=== PATIENT | male | born 1960 | race Caucasian/White ===

== ENCOUNTER 2025-02-20 13:26 | Inpatient (IN) | payer MEDICARE, BC, SELFPAY ==
--- NOTE | ~2025-02-20 | CT_ITS ---
CLINICAL HISTORY: fall this morning CT cervical spine without contrast Comparison: None Findings: Normal limited view of the intracranial contents. Soft tissues of the neck are normal. Lung apices are normal. Normal vertebral body alignment. No fractures or dislocations. Diffuse cervical degenerative changes are present, more significant C5-7.. Impression: 1. No cervical vertebral fracture or traumatic malalignment. This document has been electronically signed by: Javier Mckeon MD on 02/20/2025 15:37:38
--- NOTE | ~2025-02-20 | CT_ITS ---
CLINICAL HISTORY: sob syncope + DVT Exam: Contrast-enhanced chest CT pulmonary angiogram with multiplanar reformats. Comparison: There is a saddle embolus involving the left main pulmonary artery (6; 168), with left upper and lower lobe lobar pulmonary emboli as well as left lower lobe segmental pulmonary emboli. There are subsegmental pulmonary emboli within right lower lobe (6; 246). No other definable pulmonary emboli. The RV/LV ratio appears greater than 1 (measured on 6; 266), without definitive CT evidence of right ventricular strain. No aortic dissection. No mediastinal or hilar masses or adenopathy. No pleural or pericardial effusions. Images below the diaphragms reveal no acute abnormalities. Lungs are free of focal consolidation. No pulmonary nodules or parenchymal lesions. Airways are patent. No pneumothorax. Osseous structures reveal no destructive osseous lesions. Impression: 1. Left worse than right pulmonary emboli as described above. No definitive CT evidence of right ventricular strain. This document has been electronically signed by: Javier Mckeon MD on 02/20/2025 18:58:28
--- NOTE | ~2025-02-20 | US_ITS ---
CLINICAL HISTORY: RLE swelling pain Right lower extremity venous duplex ultrasound. Comparison: None. Technique: Real time sonographic imaging, including color-flow imaging and spectral analysis, was performed by the densitometer reader. Multiple sales representative aircraft static images were saved for review. Findings: There is noncompressibility and absent venous flow signal extending from the common femoral to the popliteal level, compatible with fairly extensive deep venous thrombosis. There may be some involvement of the greater saphenous vein origin as well. Impression: 1. Right lower extremity deep venous thrombosis as described above. This document has been electronically signed by: Javier Mckeon MD on 02/20/2025 14:42:48
--- NOTE | ~2025-02-20 | CT_ITS ---
CLINICAL HISTORY: fall this morning CT head without contrast Comparison: None Findings: No intracranial mass, midline shift, hydrocephalus, or acute hemorrhage. No CT evidence of acute ischemia. Visualized paranasal sinuses and mastoid air cells normal. Orbits unremarkable. No skull fracture Impression: 1. No acute intracranial abnormalities. This document has been electronically signed by: Javier Mckeon MD on 02/20/2025 15:35:32
[2025-02-20 13:41] VITALS: BP 171/71; PULSE 93; RESP 18; TEMP 36.7; O2SAT 98; BMI 29.8
--- NOTE | 2025-02-20 13:44 | ED_ITS ---
HPI - General Adult General Chief complaint: Extremity Problem Stated complaint: swollen leg - fall Time Seen by Provider: 02/20/25 16:39 History of Present Illness HPI narrative: patient is a 64-year-old male presents today with having leg swelling for the last 2 days. There is no injury. There is no travel history. There is no history of cancer. Patient is complaining of feeling dizzy this morning and fell this morning. There was no loss of consciousness. There is no head strike. A CT scan was ordered prior to me evaluating patient. Was done in triage. Patient had a DVT study done at triage. Grossly positive for a DVT that was fairly extensive. Patient from home. No chest pain or shortness of breath. Related Data Allergies Allergy/AdvReac Type Severity Reaction Status Date / Time No Known Allergies Allergy Verified 02/20/25 13:46 Review of Systems 2 Review of Systems: Positive near syncopal episode Yes all other systems are reviewed and are negative PMFSH Past Medical History Attestation statement: The following information was validated with the patient. Social History Social History Advance Directives: No Advance Directives Information Provided: No Physical Exam ED Exam Exam: Appearance: Alert. Oriented X3. No acute distress. Eyes: Pupils equal, round and reactive to light. ENT: Pharynx normal. Neck: Normal inspection. Neck supple. No lymph nodes noted. No crepitus CVS: Normal heart rate and rhythm. Pulses normal. Normal S1 and S2 Respiratory: No respiratory distress. Breath sounds normal. No Wheezing. No rales Abdomen: Soft and nontender. No rigidity. No distention. good BS x4 Skin: Skin warm and dry. Normal skin color. Normal skin turgor. Extremities: extensive swelling to the right leg. Good distal pulses sensation intact calf size larger on the right compared to the left. There is a slight reddish color noted on the right lower extremity. Neuro: Oriented X 3. No motor deficit. No sensory deficit. Moving all extermities. No slurred speech Vital Signs: Vital Signs - 24 hr 02/20/25 13:41 02/20/25 17:18 02/20/25 17:39 Temperature 98.1 F Pulse Rate 93 75 86 Respiratory Rate 18 16 16 Blood Pressure 171/71 H 151/93 H 167/85 H Pulse Oximetry 98 99 Oxygen Delivery Method Room Air Room Air BMI result Body Mass Index 29.8 Course Course Course Narrative: This is a Rapid Medical Examination (RME) performed by Jagdish Baker PA-C in triage. Full HPI, ROS, assessment and treatment plan per primary provider in the Main ED. Hx: 64 yo M here for eval of RLE pain/swelling/redness x2 days. no initial injury/trauma. reports fall this morning after feeling dizzy in the hot shower, states I went down . denies head strike, unclear LOC. no thinners. Plan: labs, imaging Medications Administered Discontinued Medications Generic Name Dose Route Start Last Admin Trade Name Freq PRN Reason Stop Dose Admin Enoxaparin Sodium 100 mg 02/20/25 17:09 02/20/25 17:33 Enoxaparin Sodium 100 Mg/Ml Syringe SUBCUT 02/20/25 17:10 100 mg ONCE ONE Administration Iohexol 100 ml 02/20/25 18:31 02/20/25 18:32 Iohexol 350 Mg/Ml 100 Ml Infus..Btl IV 02/20/25 18:32 65 ml ONCE ONE Administration Medical Decision Making Medical Decision Making [facility] Narrative: patient 64 years old presents today with having right leg swelling. On my exam the leg appears to be more red in color. It was enlarged. Ultrasound was positive for an extensive DVT. The finding was discussed with vascular agreed patient should be admitted for anticoagulation. They will consult. In addition patient had an episode where he nearly passed out. Because of this we did a CTA of the chest. The CTA was positive for bilateral PEs. Patient is already on Lovenox. Case will be consulted with the hospitalist team. Patient will require admission. Further workup advised. No history of cancer. Differential Diagnosis Differential Diagnoses: The differential diagnosis associated with the presentation includes DVT versus PE versus syncope versus vasovagal syncope Admission/Observation Consideration of admission/observation: Escalation of care including admission/observation considered Consult Healthcare Provider Management of the patient was discussed with: Hospitalist and Facilities Clerk ( vascular) Lab Data [facility] Lab Attestation statement: I reviewed the patient's lab results. 02/20/25 18:11 02/20/25 18:11 Labs: Lab Results 02/20/25 02/20/25 02/20/25 Range/Units 14:31 18:11 18:12 WBC 8.5 9.1 (4.8-10.8) X10*3/uL RBC 4.46 L 4.38 L (4.60-5.80) X10*6/uL Hgb 13.4 L 13.1 L (14.0-18.0) g/dl Hct 38.9 L 37.9 L (42.0-52.0) % MCV 87.2 86.5 (80.0-98.0) fL MCH 30.0 29.9 (27.0-33.0) pg MCHC 34.4 34.6 (31.0-36.0) g/dl RDW 13.2 13.1 (11.0-16.0) % Plt Count 170 170 (160-400) X10*3/uL MPV 9.6 9.2 L (9.4-12.4) fL Immature Gran % (Auto) 0.4 (0.0-0.4) % Neut % (Auto) 74.8 H (45-73) % Lymph % (Auto) 12.9 L (20-40) % [place] % (Auto) 9.9 (2-11) % Eos % (Auto) 1.4 (0-4) % Baso % (Auto) 0.6 (0-2) % Lymph # (Auto) 1.1 L (1.2-4.9) X10*3/uL [place] # (Auto) 0.8 (0.1-1.2) X10*3/uL Eos # (Auto) 0.1 (0.0-0.4) X10*3/uL Baso # (Auto) 0.1 (0.0-0.2) X10*3/uL Abs Immat Gran (auto) 0.03 (0.00-0.03) X10*3/uL Absolute Neuts (auto) 6.3 (2.0-8.3) x10*3/uL Absolute Nucleated RBC 0.000 0.000 (0.0-0.012) X10*3/uL Nucleated RBC % (auto) 0.0 0.0 (0.0-0.2) /100WBC PT 14.4 H (11.2-13.5) SEC INR 1.2 H (0.9-1.1) Sodium 138 (135-145) mmol/L Potassium 4.6 (3.3-5.1) mmol/L Chloride 105 (96-108) mmol/L Carbon Dioxide 24 (22-29) mmol/L Anion Gap 14 (12-20) BUN 34 H 32 H (9-16) mg/dL Creatinine 1.74 H 1.63 H (0.5-1.4) mg/dL Estim Creat Clear Calc 48.1 51.4 Estimated GFR 39 43 Random Glucose 105 (60-115) mg/dL Calcium 9.5 (8.4-10.2) mg/dL Magnesium 2.3 (1.6-2.6) mg/dL Total Bilirubin 0.6 (0.0-1.0) mg/dL AST 25 (5-37) U/L ALT 24 (0-40) U/L Alkaline Phosphatase 58 (39-117) U/L Troponin I High Sens 8.0 9.8 (<3.5-35.0) ng/L Total Protein 7.6 (6.5-8.0) g/dL Albumin 4.4 (3.5-5.0) g/dL Independent Interpretation I performed an independent interpretation of an: CT Scan ( positive PE) Radiology Impression Discussion of test interpretation with radiology: I discussed test interpretation with the radiologist Chronic Conditions Patient?s care impacted by: Hypertension Social Determinants Patient?s care significantly limited by Social Determinants of Health including: Problems related to primary support group Critical Care Time Critical Care Time Critical Care Time: Yes Total Critical Care Time: 40 Attestation: I have personally provided 40 minutes of critical care time exclusive of time spent on separately billable procedures. Time includes review of lab data, radiology results, discussion with consultants, and monitoring for potential decompensation. Interventions were performed as documented above Discharge Plan Discharge Clinical Impression: Deep vein thrombosis of lower extremity, Pulmonary emboli Patient Disposition: Admitted As Inpatient Print Language: [place]
--- NOTE | 2025-02-20 13:47 | ECG_ITS ---
Test Reason : dizziness Blood Pressure : */* mmHG Vent. Rate : 75 BPM Atrial Rate : 75 BPM P-R Int : 142 ms QRS Dur : 82 ms QT Int : 356 ms P-R-T Axes : 18 39 23 degrees QTcB Int : 397 ms Normal sinus rhythm Normal ECG No previous ECGs available Referred By: Alicia Baker Electronically Signed By: Rajat Aguero
--- NOTE | 2025-02-20 14:03 | MHC.EDTECH ---
Addendum entered by Samantha Alcala RN 02/20/25 14:25: EKG obtained at 1422 Original Note: Patient called for EKG 1401 no answer. Will attempt again.
[2025-02-20 14:35] LABS: MANUAL DIFF FLAG NO
[2025-02-20 14:40] LABS: Hematocrit 38.9 % (42.0-52.0); Hemoglobin 13.4 g/dl (14.0-18.0); Imm Gran Abs Auto 0.03 X10*3/uL (0.00-0.03); Imm Gran Pct Auto 0.4 % (0.0-0.4); Lymphocytes Absolute Auto 1.1 X10*3/uL (1.2-4.9); Mean Corpuscular HGB Conc 34.4 g/dl (31.0-36.0); Mean Corpuscular Hemoglobin 30.0 pg (27.0-33.0); Mean Corpuscular Volume 87.2 fL (80.0-98.0); NRBC Abs Auto 0.000 X10*3/uL (0.0-0.012); NRBC Pct Auto 0.0 /100WBC (0.0-0.2); Platelet Count 170 X10*3/uL (160-400); Red Blood Count 4.46 X10*6/uL (4.60-5.80); White Blood Count 8.5 X10*3/uL (4.8-10.8)
[2025-02-20 14:53] LABS: Alanine Aminotransferase 24 U/L (0-40); Albumin Level 4.4 g/dL (3.5-5.0); Alkaline Phosphatase 58 U/L (39-117); Anion Gap 14 (12-20); Aspartate Amino Transferase 25 U/L (5-37); Blood Urea Nitrogen 34 mg/dL (9-16); Calcium 9.5 mg/dL (8.4-10.2); Carbon Dioxide 24 mmol/L (22-29); Chloride 105 mmol/L (96-108); Creatinine Clr Calc Pharmacy 48.1; Estimated Glomerular Filt Rate 39; Magnesium 2.3 mg/dL (1.6-2.6); Potassium 4.6 mmol/L (3.3-5.1); Sodium 138 mmol/L (135-145); Total Protein 7.6 g/dL (6.5-8.0)
[2025-02-20 15:00] LABS: Troponin-I High Sensitivity 8.0 ng/L (<3.5-35.0)
[2025-02-20 17:18] VITALS: BP 151/93; PULSE 75; RESP 16; O2SAT 99
--- OUTSIDE RECORDS SUMMARY | 2025-02-20 17:30 | XMS_ITS | Clinical Summary ---
Author Organization [facility] Address [facility] [place] [address] Care Team Providers Care Pain Management Physician Name Role Phone Renita Segura APRN Primary Care Provider Allergies No known active allergies Medications triamcinolone (Kenalog) 0.1 % Ointment Apply topically to the affected area twice daily for 21 days. Take 1 week off, repeat as needed, 80 g 3 1 Active Vitamin D 25 mcg (1,000 unit) CapsuleIndications :Stage 3b chronic kidney disease,Vitamin D deficiency TAKE 1 CAPSULE BY MOUTH EVERY DAY 90 capsule 3 4 Active lisinopriL (Zestril) 20 mg tabletIndications: Stage 3b chronic kidney disease TAKE 1 TABLET BY MOUTH EVERY DAY 90 tablet 3 5 Active rosuvastatin (Crestor) 20 mg tabletIndications: Hyperlipidemia, unspecified hyperlipidemia type TAKE 1 TABLET BY MOUTH EVERY DAY 90 tablet 3 5 Active Active Problems Problem Noted Date Diagnosed Date Stage 3b chronic kidney disease 04/20/2024 Stage 3a chronic kidney disease 04/03/2023 Vitamin D deficiency 04/03/2023 Prediabetes 03/21/2020 Erectile dysfunction 04/12/2016 Essential hypertension 04/12/2016 Hyperlipidemia 04/12/2016 History of colon polyps 04/18/2011 Overview (06/27/2022): Colonoscopy (April 2011): 1 diminutive adenoma. Repeat colonoscopy in 5 years. Colonoscopy (May 2016): 2 hyperplastic polyps and early diverticulosis. Repeat colonoscopy in 5 years. Colonoscopy (June 2022): Normal colonoscopy except hemorrhoids. Repeat colonoscopy in 10 years. Resolved Problems Problem Noted Date Diagnosed Date Resolved Date Diverticulosis of colon 05/13/201606/08 Overview (06/25/2022): Early sigmoid diverticulosis identified by colonoscopy. Encounters Date Type Department Care Team Description 12/07/2024 4:20 PM EDT TH Visit (TeleHealth) Primary Care at [address] [phone] Renita Segura APRN Prediabetes; Vitamin D deficiency; Hyperlipidemia, unspecified hyperlipidemia type; Stage 3a chronic kidney disease 12/02/2024 Telephone Primary Care at [address] [phone] Renita Segura APRN 11/27/2024 8:40 AM EDT Laboratory Appointment Lab at [address] [phone] Elevated fasting blood sugar; Stage 3a chronic kidney disease; Essential hypertension; Prediabetes; Hematuria, unspecified type; Hyperlipidemia, unspecified hyperlipidemia type 11/27/2024 Results Follow-Up Primary Care at [address] [phone] Renita Segura, [employer] PROFESSIONAL Comprehensive metabolic panel Fasting required, Hemoglobin A1c, CBC (with Diff), Additional followed-up results: 4 11/27/2024 Travel 11/23/2024 Telephone Primary Care at [address] [phone] Renita Segura APRN from Last 3 Months Immunizations Immunization Administration Dates Next Due Covid-19 (Moderna Spikevax) 12yrs+ ([id number]) 01/20/2023 Covid-19 Bivalent (Pfizer Co mirnaty) 12yrs+ ([id number]) 01/12/2022 Covid-19 Monovalent (Pfizer Comirnaty purple cap) 12yrs+ () 02/17/2021,06/21/2020,05/31/2020 DT Pediatric 04/14/2003,03/10/1990 Influenza (Fluzone HD) Triva lent High Dose 11/26/2023 Influenza Quadrivalent, Pres ervative Free 01/20/2023,01/12/2022,12/16/2020,2019,01/11/2019 Influenza Unspecified Formulation 2017,12/08/2015,12/03/2014,2013,12/05/2012,12/01/2010,02/20/2010,1 Td Adult (Decavac, Tenivac) 04/13/2019 Tdap (Adacel, Boostrix) 07/25/2008 Zoster Recombinant (ShingRix) 02/13/2024 Social History Tobacco Use Types Packs/Day Years Used Date Smoking Tobacco: Never Smokeless Tobacco: Never Tobacco Cessation:Counseling Given: Not Answered Alcohol Use Standard Drinks/Week Comments Not Currently 0 (1 standard drink = 0.6 oz pur e alcohol) DH IPV Inpatient Questions Answer Date Recorded Does Anyone Try to Keep You From Having Contact with Others or Doing Things Outside Your Home? no 06/26/2022 Feels Threatened by Someone no 06/08 Feels Unsafe at Home or Work/School no 06/26/2022 Physical Signs of Abuse Present no 06/26/2022 Sex and Gender Information Value Date Recorded Sex Assigned at Not on file Legal Sex Male 6:19 AM EST Gender Identity Not on file Sexual Orientation Not on file Last Filed Vital Signs Vital Sign Reading Time Taken Comments Blood Pressure 132/74 04/20/2024 8:03 AM EST Pulse 67 04/20/2024 8:03 AM EST Temperature 36.5 C (97.7 F) 12/05/2022 8:15 AM EDT Respiratory Rate 12 02/18/2023 1:52 PM EST Oxygen Saturation 98% 04/20/2024 8:03 AM EST Inhaled Oxygen Concentration - - Weight 99.3 kg (219 lb) 04/20/2024 8:03 AM EST Height 177.2 cm (5' 9.75 ) 06/24/2023 1:58 PM ED T Body Mass Index 31.65 06/24/2023 1:58 PM EDT Plan of Treatment Health Maintenance Due Date Last Done Comments CT Colonography 1960 FIT DNA 1960 FIT 1960 Sigmoidoscopy 1960 Zoster vaccine (2 of 2) 04/09/2024 02/13/2024 Covid-19 Vaccine (7 - season) 2024 11/26/2023, 01/20/2023, 01/12/2022, Additional history exists Influenza (Flu) vaccine (1 of 1 - Influenza standard series) 11/08/2024 11/26/2023, 01/20/2023, 01/12/2022, Additional history exists Pneumoccocal Vaccine: 50+ (1 of 1 - PCV) 04/20/2025 Postponed from 2008 (Patient Declined) Pre-DM monitoring (HgbA1C or FBG) 11/27/2025 11/27/2024, 11/27/2024, 04/20/2024, Additional history exists Tetanus/Diphtheria/Pertussi s Vaccines (5 - Td or Tdap) 04/13/2029 04/13/2019, 07/25/2008, 04/14/2003, Additional history exists Colonoscopy 06/26/2032 06/26/2022, 06/08, 05/13/2016 Colorectal Cancer Screening 06/26/2032 Sigmoidoscopy (10 year) with FIT yearly 06/26/2032 06/26/2022, 06/26/2022 Hepatitis C Screening Completed 03/07/2021 Diabetes Screening (HgbA1C or Glucose) Discontinued 11/27/2024, 11/27/2024, 04/20/2024, Additional history exists Procedures Procedure Name Priority Date/Time Associated Diagnosis Comments URINALYSIS MICROSCOPIC WITH REFLEX TO CULTURE Routine 11/27/2024 8:37 AM EDT Hematuria, unspecified type URINALYSIS WITH REFLEX CULTURE Routine 11/27/2024 8:37 AM EDT Hematuria, unspecified type U ALBUMIN/CRE RATIO Routine 11/27/2024 8 :37 AM EDT Prediabetes LIPID PANEL (REFLEX DIRECT LDL) Routine 11/27/2024 8:29 AM EDT Hyperlipidemia, unspecified hyperlipidemia type CBC (WITH DIFF) Routine 11/27/2024 8:29 AM EDT Hematuria, unspecified type HEMOGLOBIN A1C Routine 11/27/2024 8:29 AM EDT Elevated fasting blood sugar Prediabetes COMPREHENSIVE METABOLIC PANEL Routine 11/27/2024 8:29 AM EDT Elevated fasting blood sugar Stage 3a chronic kidney disease Essential hypertension Prediabetes COLONOSCOPY Routine 06/26/2022 8:50 AM EDT HC HEPATITIS C ANTIBODY Routine 03/07/2021 7:41 AM EST Healthcare maintenance from Last 3 Months or Most Recently Relevant to Health Maintenance Results * Urinalysis Microscopic Exam (11/27/2024 8:37 AM EDT) Bacteria, Urine None None /HPF 10:06 AM EDT [facility] RBC, Urine 2 0 - 3 /HPF 11/27/2024 10:06 AM EDT [facility] WBC, Urine 1 0 - 3 /HPF 11/27/2024 10:06 AM EDT [facility] Squamous Epithelial Cells, Urine 0 0 - 5 /HPF 11/27/2024 10:06 AM EDT [facility] Hyaline Casts, Urine 0 0 - 2 /LPF 11/27/2024 10:06 AM EDT [facility] CULTURE ADDED? 11/27/2024 10:06 AM EDT [facility] Urine URINE SPECIMEN OBTAINED BY CLEAN CATCH PROCEDURE / Unknown Non Blood Collection / Unknown 11/27/2024 8:37 AM EDT 11/27/2024 9:03 AM EDT us Renita A Profetto [employer]ESSIONAL URINE ORDERABLES Final Resu lt [facility] [address] [place] [address] * (ABNORMAL) U Albumin/Cre Ratio (11/27/2024 8:37 AM EDT) Albumin, Urine 32.2 mg/L 11/27/2024 10:11 AM EDT [facility] Creatinine, Urine 49 mg/dL 025 10:11 AM EDT [facility] Albumin / Creatinine Ratio, Urine 66(H) 0 - 29 mcg/mg Cr 11/27/2024 10:11 AM EDT [facility] Comment: Reference Ranges: <30 mcg/mg: Normal 30-300 mcg/mg: Moderately increased albuminuria.* >300 mcg/mg: Severely increased albuminuria. * ACEI or ARB recommended if diabetic; suggested if BP>130/80 without diabetes ACEI or ARB strongly recommended if diabetic; recommended if BP>130/80 without diabetes Two of three specimens collected within a 3 to 6 month period should be abnormal before considering a patient to have albuminuria. Transient causes: exercise, fever, infection, CHF, marked hyperglycemia or hypertension. Persistent albuminuria indicates CKD and is an independent risk factor for ASCVD. ADA Standards of Medical Care in Diabetes-2016; KDIGO: Kidney International Supplements (2012) [phone] Urine URINE SPECIMEN OBTAINED BY CLEAN CATCH PROCEDURE / Unknown Non Blood Collection / Unknown 11/27/2024 8:37 AM EDT 11/27/2024 9:03 AM EDT us Renita Segura [employer] PROFESSIONAL URINE ORDERABLES Final Resu lt [facility] [address] [place] [address] * (ABNORMAL) Urinalysis with reflex Culture (11/27/2024 8:37 AM EDT) Glucose, Urine Dipstick Negative Negative 11/27/2024 10:06 AM EDT [facility] Protein, Urine Dipstick Negative Negative 11/27/2024 10:06 AM EDT [facility] Bilirubin, Urine Dipstick Negative Negative 11/27/2024 10:06 AM EDT [facility] Comment:Clinical correlation required for positive Urine Bilirubin results as false positive may occur with some drugs and drug related products. If a false positive is suspected a serum total bilirubin should be considered if clinically indicated. Urobilinogen, Urine Dipstick Normal Normal, 0.2 mg/dL, 1.0 mg/dL 11/27/2024 10:06 AM [facility] pH, Urine (dipstick) 6.0 5.0 - 8.0 11/27/2024 10:06 AM [facility] Blood, Urine Dipstick Small(A) Negative 11/27/2024 10:06 AM [facility] Ketone, Urine Dipstick Negative Negative 11/27/2024 10:06 AM [facility] Nitrite, Urine Dipstick Negative Negative 11/27/2024 10:06 AM [facility] Leukocytes, Urine Dipstick Negative Negative 11/27/2024 10:06 AM [facility] Specific [place] Urine Automated 1.010 1.005 - 1.030 11/27/2024 10:06 AM [facility] Appearance, Urine Dipstick Clear Clear 11/27/2024 10:06 AM [facility] Color, Urine Dipstick Yellow Yellow, Dark Yellow 11/27/2024 10:06 AM [facility] CULTURE ADDED? 11/27/2024 10:06 AM [facility] Urine URINE SPECIMEN OBTAINED BY CLEAN CATCH PROCEDURE / Unknown Non Blood Collection / Unknown 11/27/2024 8:37 AM EDT 11/27/2024 9:03 AM EDT us Renita Segura [employer] SAL[employer] PROFESSIONAL URINE ORDERABLES Final Resu lt [facility] [address] [place] [address] * (ABNORMAL) CBC (with Diff) (11/27/2024 8:29 AM EDT) White Blood Cell 7.22 4.00 - 9.50 x10(3)/mc L 11/27/2024 9:13 AM [facility] Red Blood Cell 4.90 4.58 - 5.54 x10(6)/mc L 11/27/2024 9:13 AM [facility] Hemoglobin 14.2 13.7 - 16.5 g/dL 11/27/2024 9:13 AM [facility] Hematocrit 42.6 40.5 - 48.5 % 11/27/2024 9:13 AM [facility] Mean Cell Volume 86.9 82.9 - 93.1 fL 11/27/2024 9:13 AM [facility] Mean Cell Hemoglobin 29.0 27.5 - 32.1 pg 11/27/2024 9:13 AM [facility] Mean Cell Hemoglobin Concentration 33.3 32.0 - 35.7 g/dL 11/27/2024 9:13 AM [facility] Platelet 198 145 - 357 x10(3)/mc L 11/27/2024 9:13 AM [facility] Mean Platelet Volume 9.7 7.6 - 12.9 fL 11/27/2024 9:13 AM [facility] RDW Standard Deviation 42.1 36.0 - 45.0 fL 11/27/2024 9:13 AM [facility] RDW coefficient of variation 13.1 11.4 - 13.8 % 11/27/2024 9:13 AM [facility] NRBC% auto 0.0 % 11/27/2024 9:13 AM [facility] NRBC Absolute <0.01 <0.01 x10(3)/mc L 11/27/2024 9:13 AM [facility] Neutrophil % 54.4 % 11/27/2024 9:13 AM [facility] Neutrophil Absolute (ANC) - Automated 3.93 1.70 - 6.10 x10(3)/mc L 11/27/2024 9:13 AM [facility] Lymph % 29.8 % 11/27/2024 9:13 AM [facility] Lymph Absolute 2.15 0.90 - 3.20 x10(3)/mc L 11/27/2024 9:13 AM EDT [facility] Monocyte % 8.7 % 11/27/2024 9:13 AM EDT [facility] Monocyte Absolute 0.63 0.30 - 0.90 x10(3)/mc L 11/27/2024 9:13 AM EDT [facility] Eos % 6.0 % 11/27/2024 9:13 AM EDT [facility] Eos Absolute 0.43(H) 0.00 - 0.40 x10(3)/mc L 11/27/2024 9:13 AM EDT [facility] Basophil % 0.8 % 11/27/2024 9:13 AM EDT [facility] Baso Absolute 0.06 0.00 - 0.10 x10(3)/mc L 11/27/2024 9:13 AM EDT [facility] Immature Gran % 0.3 % 9:13 AM EDT [facility] Immature Gran Absolute <0.04 0.00 - 0.04 x10(3)/mc L 11/27/2024 9:13 AM EDT [facility] Blood VENOUS BLOOD SPECIMEN / Unknown Venipuncture / Unknown 11/27/2024 8:29 AM EDT 11/27/2024 8:29 AM EDT us Renita Segura [employer] PROFESSIONAL HEMATOLOGY ORDERABLES Final Result [facility] [address] [place] [id number] * (ABNORMAL) Hemoglobin A1c (11/27/2024 8:29 AM EDT) Hemoglobin A1c 6.2(H) 4.3 - 5.6 % 11/27/2024 8:52 AM EDT [facility] Comment: Per ADA guidelines, without clear symptoms of hyperglycemia or a random plasma glucose >199 mg/dL, a single abnormal A1c measurement cannot be used to diagnose diabetes mellitus. The diagnosis must be confirmed by either 1) a concurrent abnormal fasting plasma glucose or impaired response to oral glucose tolerance testing, or 2) an additional abnormal A1c, impaired fasting plasma glucose, or impaired response to oral glucose tolerance testing on a different day. A1c results obtained on patients with altered red blood cell turnover may not be customer solutions representative of glycemic control. Reference Interval: 4.3 - 5.6% 5.7 - 6.4%: Consistent with prediabetes >=6.5%: Consistent with diagnosis of diabetes mellitus Estimated Average Glucose 131 mg/dL 11/27/2024 8:52 AM EDT [facility] Blood VENOUS BLOOD SPECIMEN / Unknown Venipuncture / Unknown 11/27/2024 8:29 AM EDT 11/27/2024 8:29 AM EDT [facility] - 11/27/2024 8:52 AM EDT Estimated average glucose (eAG) is calculated from the equation described in: Henrik FIELDS, Ezra J, Gloria R, et al. Translating the A1C assay into estimated average glucose values. Diabetes Care 2008:31(8):8964-3294. Additional resources are available on the ADA website (diabetes.org). us Renita Segura APRN CHEMISTRY ORDERABLES Final Result [facility] [address] [place] [id number] * Lipid Panel (Reflex Direct LDL) (11/27/2024 8:29 AM EDT) Cholesterol, Total 141 mg/dL 11/27/2024 10:18 AM EDT [facility] Comment: Desirable: < 200 mg/dL Borderline High: 200 - 239 mg/dL High: > or = 240 mg/dL Triglyceride 205 mg/dL 11/27/2024 10:18 AM EDT [facility] Comment: Normal: <150 mg/dL Borderline High: 150-199 mg/dL High: 200-499 mg/dL Very High: > or =500 mg/dL HDL Cholesterol 35 mg/dL 5 10:18 AM EDT [facility] Comment:Males: High Risk: <4 0 mg/dL LDL Cholesterol 72 mg/dL 10:18 AM EDT [facility] Comment: Desirable: <100 mg/dL Above Desirable: 100-129 mg/dL Borderline High: 130-159 mg/dL High: 160-189 mg/dL Very High: > or =190 mg/dL Note: LDL calculation updated to the NIH LDL formula as of 10/12/2023 Non-HDL Cholesterol 106 mg/dL 11/27/2024 10:18 AM EDT [facility] Comment: Desirable: <130 mg/dL Above Desirable: 130-159 mg/dL Borderline High: 160-189 mg/dL High: 190-219 mg/dL Very High: > or = 220 mg/dL Blood VENOUS BLOOD SPECIMEN / Unknown Venipuncture / Unknown 11/27/2024 8:29 AM EDT 11/27/2024 8:29 AM EDT [facility] - 11/27/2024 10:18 AM EDT It is important to review the results of your lipid panel with your health care provider. You can compare your lipid results to the ranges below and whether they are in the desirable range. These ranges are only meant to be used for people without known cardiac disease, history of stroke, or peripheral vascular disease (blockages in the leg arteries or diabetes). If you have one of these conditions, your desirable LDL-C (bad cholesterol) will likely be even lower. ACC/AHA Guidelines (most recently Ricky et al. [facility] 12/11/21): * For individuals with atherosclerotic cardiovascular disease (ASCVD) or LDL >=190 mg/dL, use a high-intensity statin(40-80 mg atorvastatin or 20-40 mg rosuvastatin with goal >=50% LDL reduction) * For individuals with diabetes, age 40-75 without ASCVD, moderate-intensity statin (goal 30-49% LDL reduction); consider high intensity statin for those with increased risk. * For adults without diabetes or ASCVD, aged 40-75 with LDL 70-189 mg/dL, estimate 10 year ASCVD risk with smartphrase .ASCVDRISK or Dynamed Decisions. If 10 year risk is 7.5%-19.9% (intermediate risk), consider moderate intensity statin based on risk enhancers and patient preference. Consider coronary artery calcium test (CT)if there is concern regarding the benefit of a statin. If ten year risk is >=20%, initiate high-intensity statin. * Evaluate for secondary causes of Triglycerides >500 mg/dL or LDL >190 mg/dL. * Lifestyle modification is a critical component of ASCVD risk reduction. * If not reaching LDL goals on maximally tolerated statin, consider ezetimibe and/or a PCSK9 inhibitor: * Target for primary prevention: LDL<100 * Target for those with ASCVD or diabetes and 10-year risk >=20%: LDL<70 * Target for those with very high risk ASCVD: LDL<55 (Very high risk being the presence of 2 or more of: recent acute coronary syndrome, past myocardial infarction, ischemic stroke, symptomatic peripheral artery disease) us Renita Segura APRN CHEMISTRY ORDERABLES Final Result [facility] [address] [place] [address] * (ABNORMAL) Comprehensive metabolic panel Fasting required (11/27/2024 8:29 AM EDT) [facility] [address] Glucose 103(H) 65 - 99 mg/dL 11/27/2024 10:18 AM EDT [facility] Comment: Fasting Glucose Interpretive Criteria: Normal: 65-99 mg/dL Prediabetes: 100-125 mg/dL Consistent with Diabetes Mellitus: > or = 126 mg/dL Classification and Diagnosis of Diabetes: Standards of Care in Diabetes - 2022. Diabetes Care 202; 46:S19. Fasting is defined as no caloric intake for at least 8 hours. Blood Urea Nitrogen 29(H) 10 - 20 mg/dL 11/27/2024 10:18 AM EDT [facility] Creatinine 1.61(H) 0.80 - 1.50 mg/dL 11/27/2024 10:18 AM EDT [facility] Sodium 134(L) 135 - 145 mMol/L 11/27/2024 10:18 AM EDT [facility] Potassium 4.5 3.5 - 5.0 mMol/L 11/27/2024 10:18 AM EDT [facility] Chloride 100 98 - 107 mMol/L [facility]/27[facility]2024 [facility] Carbon Dioxide 23 22 - 31 mMol/L 11/27/2024 10:18 AM [facility] Anion Gap 11 5 - 15 mMol/L 11/27/2024 10:18 AM [facility] Calcium 9.0 8.5 - 10.5 mg/dL 11/27/2024 10:18 AM [facility] Protein, Total 7.4 6.1 - 8.0 g/dL 11/27/2024 10:18 AM [facility] Albumin 4.3 3.2 - 5.2 g/dL 11/27/2024 10:18 AM [facility] Aspartate Aminotransferase 22 <=39 unit/L 11/27/2024 10:18 AM [facility] Alanine Aminotransferase 25 0 - 55 unit/L 11/27/2024 10:18 AM [facility] Alkaline Phosphatase 47 40 - 130 unit/L 11/27/2024 10:18 AM [facility] Bilirubin, Total 0.6 <=1.3 mg/dL 11/27/2024 10:18 AM [facility] Est Glomerular Filtration Rate - Male 47(L) >=90 mL/min/1. 73 m 11/27/2024 10:18 AM [facility] Comment: This patient's estimated GFR was calculated using the 2020 CKD-EPI equation. The estimated GFR can vary from the measured GFR by up to 30% in the absence of rapidly changing kidney function. Assessment of the estimated GFR is not appropriate when creatinine concentrations are rapidly changing. For clinical situations in which a more precise estimate of GFR is necessary, consider alternative methods of GFR estimation such as a 24-hour urine creatinine clearance. Assignment of CKD stage 1 - 5 for patients with an eGFR near the transition point between stages may be based on clinical assessment of muscle mass and symptoms in addition to eGFR. Link: eGFR Calculator National Kid[employer] Fasting Status Yes 11/27/2024 10:18 AM [facility] Blood VENOUS BLOOD SPECIMEN / Unknown Venipuncture / Unknown 11/27/2024 8:29 AM EDT 11/27/2024 8:29 AM EDT us Renita Segura [employer] PROFESSIONAL CHEMISTRY ORDERABLES Final Result [facility] [address] [facility] [place] [address] * COLONOSCOPY (06/26/2022 8:50 AM EDT) COLONOSCOPY Patient Name: Shin Prajapati Procedure Date: 06/26/2022 8:50 AM Attending MD: Sumit Gomes MD Date of : 1960 Order #: [id number] Age: 62 Instrument Name: [id number] Procedure: Colonoscopy Indications: High risk colon cancer surveillance: Personal history of non-advanced adenoma, Last colonoscopy: May 2016 Providers: Sumit Gomes MD Referring MD: Medicines: Monitored Anesthesia Care Complications: No immediate complications. Procedure: Pre-Anesthesia Assessment: Prior to the procedure, a History and Physical was performed, and patient medications and allergies were reviewed. The patient's tolerance of previous anesthesia was also reviewed. The risks and benefits of the procedure and the sedation options and risks were discussed with the patient. All questions were answered, and informed consent was obtained. Prior Anticoagulants: The patient has taken no anticoagulant or antiplatelet agents. ASA Grade Assessment: II - A patient with mild systemic disease. After reviewing the risks and benefits, the patient was deemed in satisfactory condition to undergo the procedure. The patient was placed in the left lateral decubitus position, and a digital rectal exam was performed. The Colonoscope was inserted in the anus and under direct visualization, advanced to the terminal ileum. Careful inspection was made as the colonoscope was withdrawn. The colonoscopy was performed without difficulty. The patient tolerated the procedure well. The quality of the bowel preparation was excellent. Retroflexion was performed in the cecum / ascending colon. Scope Withdrawal Time: 0 hours 6 minutes 37 seconds Findings: The perianal and digital rectal examinations were normal. Internal hemorrhoids were found during retroflexion. The hemorrhoids were Grade I (internal hemorrhoids that do not prolapse). The terminal ileum appeared normal. The exam was otherwise without abnormality on direct and retroflexion views. Impression: - Internal hemorrhoids. - The examined portion of the ileum was normal. - The examination was otherwise normal on direct and retroflexion views. - No polyps. Recommendation: - Discharge patient to home. - Advance diet as tolerated. - Continue present medications. - Repeat colonoscopy in 7-10 years. - Return to primary care physician as needed for routine healthcare. Procedure Code(s): --- Professional --- G0105, Colorectal cancer screening; colonoscopy on individual at high risk --- Technical --- G0105, Colorectal cancer screening; colonoscopy on individual at high risk Diagnosis Code(s): --- Professional --- Z86.010, Personal history of colonic polyps K64.0, First degree hemorrhoids --- Technical --- Z86.010, Personal history of colonic polyps K64.0, First degree hemorrhoids CPT copyright 2020 [employer]. All rights reserved. The codes documented in this report are preliminary and upon skip locator review may be revised to meet current compliance requirements. Sumit Gomes MD __ Sumit Gomes MD 06/26/2022 8:52:44 AM This report has been signed electronically. Number of Addenda: 0 PROVATION 06/26/2022 8:50 AM EDT us Sumit Gomes MD GENERAL SURGICAL ORDERABLES E dited Result - Final PROVATION * Hepatitis C Antibody (03/07/2021 7:41 AM EST) Hepatitis C Antibody Negative Negative [facility] Blood 03/07/2021 7:41 AM EST 03/07/2021 7:42 AM EST Narrative Resulting Agency Comment Spec In Lab us Renita Segura INSIDE SALES PROFESSIONAL CHEMISTRY ORDERABLES Final Result [facility] [address] [place] [address] from Last 3 Months or Most Recently Relevant to Health Maintenance Insurance [facility] O MEDICARE Advance Directives Documents on File Type Date Recorded 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
[2025-02-20 17:39] VITALS: BP 167/85; PULSE 86; RESP 16
[2025-02-20 18:22] LABS: Hematocrit 37.9 % (42.0-52.0); Hemoglobin 13.1 g/dl (14.0-18.0); Mean Corpuscular HGB Conc 34.6 g/dl (31.0-36.0); Mean Corpuscular Hemoglobin 29.9 pg (27.0-33.0); Mean Corpuscular Volume 86.5 fL (80.0-98.0); NRBC Abs Auto 0.000 X10*3/uL (0.0-0.012); NRBC Pct Auto 0.0 /100WBC (0.0-0.2); Platelet Count 170 X10*3/uL (160-400); Red Blood Count 4.38 X10*6/uL (4.60-5.80); White Blood Count 9.1 X10*3/uL (4.8-10.8)
[2025-02-20 18:27] LABS: INTERNATIONAL NORM RATIO 1.2 (0.9-1.1); Prothrombin Time 14.4 SEC (11.2-13.5)
[2025-02-20] MEDS: iohexoL 350 MG/ML 100 ML INFUS..BTL IV (18:32)
[2025-02-20 18:34] LABS: Blood Urea Nitrogen 32 mg/dL (9-16); Creatinine Clr Calc Pharmacy 51.4; Estimated Glomerular Filt Rate 43
[2025-02-20 18:42] LABS: Troponin-I High Sensitivity 9.8 ng/L (<3.5-35.0)
[2025-02-20 19:19] VITALS: BP 146/84; PULSE 85; RESP 18; TEMP 36.9; O2SAT 98
--- NOTE | 2025-02-20 19:20 | PC.NURSE ---
20 g IV in left AC
--- NOTE | 2025-02-20 20:59 | PM.IMHP ---
History of Present Illness Date of Service: 02/20/25 Chief Complaint: Saddle PE and RLE DVT A 64-year-old male a comorbid conditions significant for hypertension and hyperlipidemia. He presents to the emergency department for evaluation for right lower extremity swelling associated with pain and an unwitnessed fall. Right lower extremity swelling and pain: 2 days history of right unilateral LE swelling, erythema and pain. Onset of symptoms occurred after a car for 4 hours ([address]) on February. Denied personal history of DVT/PE; denied SOB/dyspnea, pleuritic chest pain, hemoptysis, lightheadedness, syncope, and palpitations. Unwitnessed fall: Lost of balance whilst bending forward to dry off his extremities when he got out of the shower. Denies prodromal symptoms, head trauma and loss of consciousness. Vital signs in the ED: BP (initial) 171/714, (current) 146/84, HR (initial) 93 (current) 85, RR: (initial) 18 (current) 18, W4veidf (initial) 98% (RA) (current) 98% (RA), Temp (initial) 98.1 (current) 98.4 Diagnostic studies Labs: hstrop: 8->9; CMP within normal limits except for: BUN: 34->32, cr 1.74->1.63; PT 14.4, INR: 1.2; CBC wnl except for Hgb 13.1 ECG: NSR @ 75 bpm, QTc: 397 ms, and no ischemic changes. Imaging: - RLE venous duplex ultrasound: Right lower extremity deep venous thrombosis extending from the common femoral to the popliteal level, compatible with fairly extensive deep venous thrombosis. There may be some involvement of the greater saphenous vein origin as well. - CTA chest PE protocol: Left worse than right pulmonary emboli. The RV/LV ratio appears greater than 1 (measured on 6; 266), without definitive CT evidence of right ventricular strain. No aortic dissection. - CT head and cervical spine w/o contrast: my interpretation no acute intracranial pathology Brief ED course Tx: Lovenox 100 mg SQ x 1 dose. ED attending discussed the case with vascular surgery. [facility] Social History Smoked in Last 30 Days: No Use of substances other than those prescribed or required for medical reasons: No Advance Directives: No Advance Directives Information Provided: No Meds Allergies Allergy/AdvReac Type Severity Reaction Status Date / Time No Known Allergies Allergy Verified 02/20/25 13:46 Active Medications: Current Medications Acetaminophen (Acetaminophen 325 Mg Tablet) 650 mg PO Q6H PRN PRN Reason: Pain, Mild 1-3,fever,headache Calcium Carbonate (Calcium Carbonate 750 Mg Tab.Chew) 750 mg PO Q4H PRN PRN Reason: Heartburn Lactated Ringer's (Lr) 1,000 mls @ 100 mls/hr IVCONT .Q10H ONE Stop: 02/21/25 06:53 Magnesium Hydroxide (Milk Of Magnesia 30 Ml Oral.Susp) 30 ml PO DAILY PRN PRN Reason: Constipation Melatonin (Melatonin 3 Mg Tablet) 3 mg PO BEDTIME PRN PRN Reason: Insomnia Ondansetron HCl (Ondansetron Hcl 4 Mg/2 Ml Vial) 4 mg IVPUSH Q8H PRN PRN Reason: Nausea and Vomiting Sodium Chloride (0.9 % Sodium Chloride Flush 3 Ml Syringe) 3 ml IVFLUSH QSHIFT [facility] Physical Exam Vital Signs and Narrative: Vital Signs: Last Vital Signs Temp 98.4 F 02/20/25 19:19 Pulse 85 02/20/25 19:19 Resp 18 02/20/25 19:19 BP 146/84 H 02/20/25 19:19 Pulse Ox 98 02/20/25 19:19 O2 Del Method Room Air 02/20/25 19:19 BMI result Body Mass Index 29.8 General: Alert, oriented, in no acute distress and cooperative. Afebrile. HEENT: Head normocephalic, PER, EOMI. Conjunctiva clear. Oropharynx without erythema or exudate. Mucous membranes moist. Neck: Supple, no lymphadenopathy, or JVD Heart: RRR, no murmurs Lungs: CTABL. No wheezes, rales, or rhonchi. Normal respiratory effort. Abdomen: Soft, non tenderness, nondistended, normoactive bowel sounds. Extremities: RLE swelling, mildy erythema, DP intact Results Labs 02/21/25 04:00 02/21/25 04:00 Labs: Laboratory Results - last 24 hr 02/20/25 02/20/25 02/20/25 14:31 18:11 18:12 MCV 87.2 86.5 MCH 30.0 29.9 MCHC 34.4 34.6 RDW 13.2 13.1 Plt Count 170 170 MPV 9.6 9.2 L Immature Gran % (Auto) 0.4 Neut % (Auto) 74.8 H Lymph % (Auto) 12.9 L Martin % (Auto) 9.9 Eos % (Auto) 1.4 Baso % (Auto) 0.6 Lymph # (Auto) 1.1 L Martin # (Auto) 0.8 Eos # (Auto) 0.1 Baso # (Auto) 0.1 Abs Immat Gran (auto) 0.03 Absolute Neuts (auto) 6.3 Absolute Nucleated RBC 0.000 0.000 Nucleated RBC % (auto) 0.0 0.0 PT 14.4 H INR 1.2 H Anion Gap 14 Estim Creat Clear Calc 48.1 51.4 Estimated GFR 39 43 Random Glucose 105 Calcium 9.5 Magnesium 2.3 Total Bilirubin 0.6 AST 25 ALT 24 Alkaline Phosphatase 58 Troponin I High Sens 8.0 9.8 Total Protein 7.6 Albumin 4.4 Assessment and Plan (1) Pulmonary emboli: Status: Acute (2) Deep vein thrombosis of lower extremity: Status: Acute Plan Saddle/submassive pulmonary emboli with extensive right lower extremity DVT, extending from the common femoral to the popliteal vein, with possible involvement of the proximal greater saphenous vein. Likely related to prolonged immobility. Risk Stratification: Intermediate risk: RV/LV ratio > 1 on imaging, but patient remains hemodynamically stable. PESI score: 76. -Anticoagulation: Patient received Lovenox 100 mg SQ in the ED. If no contraindications, consider transitioning to a DOAC. -Echocardiogram to evaluate right ventricular size and function. -Vascular surgery consult -CBC in the morning to monitor hemoglobin -Provide supplemental oxygen to maintain SpO2> 92%. -Monitor closely for respiratory distress or hemodynamic instability (hypotension, tachycardia, syncope). -Continuous telemetry for arrhythmia surveillance and pulse oximetry. -Frequent monitoring of vital signs: blood pressure, heart rate, respiratory rate, oxygen saturation, and temperature. Possible acute kidney injury (serum creatinine 1.74->1.63; baseline unknown) -Hold lisinopril 20 mg daily -Gentle IV hydration, avoiding volume overload -Monitor BMP closely -Avoid nephrotoxic agents and adjust medication dosing for renal function as needed Hypertension: Blood pressures currently acceptable. -Continue to monitor -Lisinopril remains on hold Advance Care Planning: -Healthcare proxy: Patient designates his son, Jon , as surrogate decision-maker if incapacitated. -Code status: Full code (CPR to be attempted if indicated). Primary contact during hospitalization:Jon (son) @ Secondary contact: Yady (girlfriend) @ Plan of care discussed with the patient and son at bedside. CT head and cervical spine w/o contrast: Report pending * Medication reconciliation pending. Patient requires at least a two-midnight hospital stay. Submassive PE of this category carries increased risk for clinical deterioration and adverse outcomes compared to low-risk PE, warranting close observation and vigilant management. Quality Stroke Does the patient have a stroke diagnosis?: No VTE Prior VTE?: No VTE Risk Level:: Medical - moderate - high VTE Device Contraindication: Procedure Contraindicated VTE Drug Contraindication: N/A - Med Ordered
[2025-02-20] MEDS: Lactated Ringers 1,000 ML 100 ML IVCONT (22:31)
[2025-02-20 23:42] VITALS: BP 125/71; PULSE 73; RESP 16; TEMP 36.6; O2SAT 96
[2025-02-21 04:42] LABS: MANUAL DIFF FLAG NO
[2025-02-21 04:43] LABS: Hematocrit 36.2 % (42.0-52.0); Hemoglobin 11.9 g/dl (14.0-18.0); Imm Gran Abs Auto 0.02 X10*3/uL (0.00-0.03); Imm Gran Pct Auto 0.3 % (0.0-0.4); Lymphocytes Absolute Auto 2.0 X10*3/uL (1.2-4.9); Mean Corpuscular HGB Conc 32.9 g/dl (31.0-36.0); Mean Corpuscular Hemoglobin 29.2 pg (27.0-33.0); Mean Corpuscular Volume 88.9 fL (80.0-98.0); NRBC Abs Auto 0.000 X10*3/uL (0.0-0.012); NRBC Pct Auto 0.0 /100WBC (0.0-0.2); Platelet Count 164 X10*3/uL (160-400); Red Blood Count 4.07 X10*6/uL (4.60-5.80); White Blood Count 7.3 X10*3/uL (4.8-10.8)
[2025-02-21 04:58] LABS: Anion Gap 12 (12-20); Blood Urea Nitrogen 32 mg/dL (9-16); Calcium 8.9 mg/dL (8.4-10.2); Carbon Dioxide 24 mmol/L (22-29); Chloride 107 mmol/L (96-108); Creatinine Clr Calc Pharmacy 53.7; Estimated Glomerular Filt Rate 45; Potassium 4.2 mmol/L (3.3-5.1); Sodium 139 mmol/L (135-145)
[2025-02-21 05:43] VITALS: BP 119/75; PULSE 65; RESP 18; TEMP 36.6; O2SAT 97
--- NOTE | 2025-02-21 06:17 | PC.NURSE ---
Pt resting quietly on hospital bed, call raya within reach.
--- NOTE | 2025-02-21 06:18 | HO.NURTONUR ---
Pt is a 64 y.o. male coming in with right leg swelling x 2 days. No traumatic injury to leg. No notable PMH. Imaging shows - RLE venous duplex ultrasound: Right lower extremity deep venous thrombosis extending from the common femoral to the popliteal level, compatible with fairly extensive deep venous thrombosis. There may be some involvement of the greater saphenous vein origin as well. - CTA chest PE protocol: Left worse than right pulmonary emboli. The RV/LV ratio appears greater than 1 (measured on 266), without definitive CT evidence of right ventricular strain. No aortic dissection. Labs shows increased BUN/creatinine. Pt's only complaint is RLE pain. No SOB. VSS, a&ox4. 20 g IV left AC. LR running 100 mL/hr. Subq Lovenox administered.
--- NOTE | 2025-02-21 07:00 | CA_ITS ---
Transthoracic Echocardiogram Patient (Last, First, Middle): Shin Prajapati, Gender: Male Date of : 1960 Age: 64 Procedure Date: 02/21/2025 Procedure Type: Transthoracic Echocardiogram Location: ER Height: 177.8 cm Weight: 94.35 kg BSA: 2.12 m2 Heart Rate: 81 bpm BP: 139 / 80 mmHg It Sales Representative: SB Referring MD: Mayela Jordan MD Symptoms: Submassive PE Study Quality: Adequate w contrast ECG Rhythm: Sinus Conclusions: - Normal left ventricular size, thickness, systolic function, and wall motion. The visually estimated ejection fraction is between 55-60%. Diastolic function is normal for age. - Normal right ventricular cavity size and systolic function. Findings Procedure Information Contrast agent, definity, is being given per protocol without apparent complications. Left Ventricle Normal left ventricular size, thickness, systolic function, and wall motion. The visually estimated ejection fraction is between 55-60%. Diastolic function is normal for age. Right Ventricle Normal right ventricular cavity size and systolic function. Atria The left atrium is normal in size. The right atrium is normal in size. Aortic Valve There is a normal trileaflet aortic valve. There is no aortic valve stenosis. There is no aortic valve regurgitation. Mitral Valve Normal mitral valve structure and function. There is no mitral valve regurgitation. There is no mitral valve stenosis. Pulmonic Valve The pulmonic valve is likely normal. Tricuspid Valve Normal tricuspid valve structure. There is no tricuspid valve regurgitation. Tricuspid regurgitation envelope is inadequate for calculation of right ventricular systolic pressure. Normal right atrial pressure. Great Vessels All visible segments of the aorta are normal in size. Venous The inferior vena cava is normal in size and collapses greater than 50% with inspiration. Pericardium/Pleural There is no evidence of pericardial effusion. Prior Study Comparison No prior study available for comparison. Measurements 2D Linear Measurements IVSd: 1.12 0.6-0.9/0.6-1.0 cm LVIDd: 4.67 3.9-5.3/4.2-5.9 cm LVIDd Index: 2.20 2.4-3.2/2.2-3.1 cm/m2 LVIDs: 3.08 2.0-3.6 cm LVPWd: 0.90 0.7-1.1 cm LA Diam: 3.40 2.7-3.8/3.0-4.0 cm LAIDs Index: 1.60 1.5-2.3 cm/m2 LV Mass: 205.19 67-162/88-224 g LV Mass Index: 96.79 43-95/49-115 g/m2 LVOT Diam: 2.30 3.0+(-)1.3 cm 2D Systolic Function EF 4C: 63.40 >55% EF 2C: 69.40 >55% EF BiP: 65.30 >55% Mitral Valve MV Pk E: 0.91 MV PK A: 0.98 MV Decel Time: 207.00 E/A: 0.90 E'Lateral: 9.68 E'Medial: 7.29 E/E' Med: 12.50 E/E' Lat: 9.40 PHT: 61.00 MVA PHT: 3.61 Decel Marinette: 4.38 Aortic Valve AoV Pk Edgardo: 1.49 AoV Pk Grad: 9.00 HÉCTOR: 3.18 LVOT LVOT Pk Edgardo: 1.01 LVOT Mn Edgardo: 0.76 LVOT VTI: 0.22 LVOT Pk Grad: 4.00 LVOT Mn Grad: 3.00 LVOT Diam: 2.30 LVOT Area: 4.15 Diastolic Function MV Pk E: 0.91 MV Pk A: 0.98 E/A: 0.90 E'Medial: 7.29 E/E' Med: 12.50 E' Laterial: 9.68 E/E' Lat: 9.40 Right Ventricle TAPSE (mm): 22.30 TVS' Edgardo: 13.50 Tricuspid Valve RA Press: 3.00 Great Vessels Aorta Sinus of Valsalva: 3.20 2.0-3.5 cm Ao Asc: 3.10 2.1-3.4 cm Pulmonary Veins Pulm Vein S/D 1.80 Pulmonary Valve PV Pk Edgardo: 1.51 Peak PV Grad: 9.00 Updated in Other Vendor System with Status of Final Rajat Aguero MD electronically signed on 02/21/2025 3:54:38 PM with status of Final
--- NOTE | 2025-02-21 08:52 | PHA.MEDREC ---
Addendum entered by Anselmo Molina RPh 02/21/25 10:50: MED REC REVIEWED BY [facility] Original Note: Pharmacy Consult ? Medication Reconciliation Pharmacy has completed the medication reconciliation. Spoke with pt and he confirmed his medications. Pt takes Lisinopril and Vitamin D3 once daily at bedtime; pt took them last 2 nights ago.
[2025-02-21 09:59] LABS: Hematocrit 37.6 % (42.0-52.0); Hemoglobin 12.9 g/dl (14.0-18.0); Mean Corpuscular HGB Conc 34.3 g/dl (31.0-36.0); Mean Corpuscular Hemoglobin 29.9 pg (27.0-33.0); Mean Corpuscular Volume 87.2 fL (80.0-98.0); NRBC Abs Auto 0.000 X10*3/uL (0.0-0.012); NRBC Pct Auto 0.0 /100WBC (0.0-0.2); Platelet Count 161 X10*3/uL (160-400); Red Blood Count 4.31 X10*6/uL (4.60-5.80); White Blood Count 6.6 X10*3/uL (4.8-10.8)
[2025-02-21 10:13] LABS: Blood Urea Nitrogen 28 mg/dL (9-16); Creatinine Clr Calc Pharmacy 58.6; Estimated Glomerular Filt Rate 49
[2025-02-21 10:23] VITALS: BP 144/81; PULSE 84; RESP 21; TEMP 36.8; O2SAT 99
--- NOTE | 2025-02-21 12:49 | MHC.CM.PN ---
IMM was addressed with Patient. 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 Patient may benefit from a PT Eval to assist with disposition. CM has initiated and will follow for dc planning. PCP is Dr. Renita Segura and Son will transport at dc.
[2025-02-21 14:24] VITALS: BP 139/80; PULSE 85; RESP 14; TEMP 36.6; O2SAT 97
--- NOTE | 2025-02-21 15:32 | P.OP_ITS ---
Operative Note Operative Note Date of Service: 02/21/25 Narrative: Operative note by [facility] Preoperative diagnosis:1. Nonhealing right BKA stump ulcer 2. Diabetic ulcer Postoperative diagnosis: Same Procedure: Excisional debridement into muscle 2. Application of skin substitute Surgeon:Eddy Love M.D. Bus And Rail Operator: Romina Anesthesia: Local with sedation by Dr. Grant from anesthesia Specimens: None Drains: None Estimated blood loss: Minimal Indications: Very pleasant 64-year-old gentleman prior history of BKA nonhealing stump. Has undergone previous revision. Has a nonhealing residual ulcer. He now presents for debridement and skin substitute placement. The patient has signed the informed consent after reviewing risks, complications, benefits, and alternatives previously discussed with the patient. The patient was given the opportunity to ask any additional questions or voice any concerns. All questions were answered to the patient's satisfaction. Procedure in detail: Patient was brought to the operating room prior to which a time-out was called for patient identification and site verification. Right stump was prepped and draped in standard surgical fashion. Stump was cleaned. There was an ulcer measuring 4 x 2.5 x 0.1 cm. Using a 15 blade and curette this was debrided down into muscle. We did have a good bleeding tissue bed. Once this was debrided and completion it measured 4.3 x 2.6 x 0.3 cm. Once this was done it was thoroughly irrigated clean. Kerecisis skin substitute was placed. There was 3 layers placed in this open area. Subsequently a bolster dressing was sutured into place using a 3-0 nylon suture. Once this was all accomplished sterile dressing including 4 x 4 Kerlix wrap was applied at the end the case sponge instrument counts were correct. Patient tolerated the procedure well. Returned to recovery with stable vitals. This note is constructed using voice recognition software. While every effort has been made to ensure accuracy, sales analytics manager errors may have been included. Thank you for allowing me to participate in the care of your patient. Yours sincerely, Eddy Love MD, FACS, R.P.V.I.
--- NOTE | 2025-02-21 15:36 | PM.CNGS ---
History of Present Illness Consult details Consult date: 02/21/25 Reason for consult: other (DVT with PE) Narrative: Very pleasant 64-year-old gentleman with no significant prior history. He presents for acute onset DVT. He reports that most recently he had a 4 hour car ride and after this car ride he developed swelling of the right lower extremity. He subsequently came to the hospital and upon workup was found to have a DVT and subsequently discovered to have a PE. At the time of my evaluation he was up in bed tolerating a diet fairly comfortable. He was satting 97% on room air. And had normal speech patterns. He did complain more extensively of his right lower extremity swelling. He has no known prior history of DVT. He has no family history of DVT as well. He denied any history of trauma as well. Of note he recently had COVID a proximally 2 months ago in the beginning of January. He now presents to us for vascular evaluation. Review of Systems Constitutional: Constitutional: Reports as per HPI ENT: Reports system reviewed and no additional complaints, except as documented Cardiovascular: Cardiovascular: Denies chest pain, Denies chest pain at rest and Denies chest pain with activity Respiratory: Respiratory: Denies chest congestion and Denies cough Gastrointestinal: Gastrointestinal: Reports no additional gastrointestinal complaints Musculoskeletal: Musculoskeletal: Denies abnormal gait Integumentary/Breasts: Skin/Breast: Reports pruritus and Denies wounds Neurologic: Reports system reviewed and no additional complaints, except as documented and Denies abnormal gait Psychiatric: Psychiatric: Denies no additional psychiatric complaints PMFSH Social History Social History Patient Tobacco Use Status: Never used Tobacco Smoked in Last 30 Days: No Use of substances other than those prescribed or required for medical reasons: No Advance Directives: No Advance Directives Information Provided: No Nutrition Risks: No Nutritional Risk service: No Meds Allergies Allergy/AdvReac Type Severity Reaction Status Date / Time No Known Allergies Allergy Verified 02/20/25 13:46 Active Medications: Current Medications Acetaminophen (Acetaminophen 325 Mg Tablet) 650 mg PO Q6H PRN PRN Reason: Pain, Mild 1-3,fever,headache Last Admin: 02/20/25 22:40 Dose: 650 mg Calcium Carbonate (Calcium Carbonate 750 Mg Tab.Chew) 750 mg PO Q4H PRN PRN Reason: Heartburn Enoxaparin Sodium (Enoxaparin Sodium 100 Mg/Ml Syringe) 100 mg SUBCUT Q12H [facility] Magnesium Hydroxide (Milk Of Magnesia 30 Ml Oral.Susp) 30 ml PO DAILY PRN PRN Reason: Constipation Melatonin (Melatonin 3 Mg Tablet) 3 mg PO BEDTIME PRN PRN Reason: Insomnia Ondansetron HCl (Ondansetron Hcl 4 Mg/2 Ml Vial) 4 mg IVPUSH Q8H PRN PRN Reason: Nausea and Vomiting Sodium Chloride (0.9 % Sodium Chloride Flush 3 Ml Syringe) 3 ml IVFLUSH QSHIFT [facility] Last Admin: 02/21/25 07:46 Dose: Not Given Home Medications ?Medication ?Instructions ?Recorded ?Confirmed ?Last Taken ?Type cholecalciferol (vitamin D3) 25 25 mcg PO BEDTIME 02/21/25 02/21/25 02/19/25 History mcg (1,000 unit) capsule (Vitamin D3) lisinopril 20 mg tablet 20 mg PO BEDTIME 02/21/25 02/21/25 02/19/25 History Physical Exam Vital Signs: Vital Signs: Last Vital Signs Temp 97.8 F 02/21/25 14:24 Pulse 85 02/21/25 14:24 Resp 14 02/21/25 14:24 BP 139/80 02/21/25 14:24 Pulse Ox 97 02/21/25 14:24 O2 Del Method Room Air 02/21/25 14:24 BMI result Body Mass Index 29.8 Const: General: cooperative, healthy appearing and comfortable Orientation/consciousness: oriented to person, oriented to place and oriented to time Neck: Carotids: no bruits Chest: Chest palpation & inspection: normal inspection of the chest and normal palpation of entire chest wall Resp: Effort & Inspection: normal respiratory effort and able to speak in complete sentences Cardio: Rate: regular rate Heart sounds: S1 normal heart sound present and S2 normal heart sound present Peripheral pulses: Peripheral pulses 2+ throughout GI: Inspection: Yes normal to inspection Skin: Other: +2 edema, right leg CEAP Classification C4 - skin color changes Ep - Etiology Primary As - superficial veins P - reflux General skin exam: dry skin Neuro: General: oriented to person, oriented to place and oriented to time Extrem: Right lower extremity: full ROM, normal capillary refill and edema Left lower extremity: full ROM, normal capillary refill and edema Psych: Mental Status: mental status grossly normal Results Labs 02/21/25 09:42 02/21/25 09:42 Labs: Abnormal lab results 02/20/25 02/20/25 02/21/25 Range/Units 18:11 18:12 04:00 RBC 4.38 L 4.07 L (4.60-5.80) X10*6/uL Hgb 13.1 L 11.9 L (14.0-18.0) g/dl Hct 37.9 L 36.2 L (42.0-52.0) % MPV 9.2 L (9.4-12.4) fL [place] % (Auto) 12.7 H (2-11) % Eos % (Auto) 4.6 H (0-4) % PT 14.4 H (11.2-13.5) SEC INR 1.2 H (0.9-1.1) BUN 32 H 32 H (9-16) mg/dL Creatinine 1.63 H 1.56 H (0.5-1.4) mg/dL 02/21/25 Range/Units 09:42 RBC 4.31 L (4.60-5.80) X10*6/uL Hgb 12.9 L (14.0-18.0) g/dl Hct 37.6 L (42.0-52.0) % MPV (9.4-12.4) fL [place] % (Auto) (2-11) % Eos % (Auto) (0-4) % PT (11.2-13.5) SEC INR (0.9-1.1) BUN 28 H (9-16) mg/dL Creatinine 1.43 H (0.5-1.4) mg/dL Short CBC 02/20/25 02/21/25 02/21/25 Range/Units 18:11 04:00 09:42 WBC 9.1 7.3 6.6 (4.8-10.8) X10*3/uL Hgb 13.1 L 11.9 L 12.9 L (14.0-18.0) g/dl Hct 37.9 L 36.2 L 37.6 L (42.0-52.0) % Plt Count 170 164 161 (160-400) X10*3/uL BMP 02/20/25 02/21/25 02/21/25 18:11 04:00 09:42 Sodium 139 Potassium 4.2 Chloride 107 Carbon Dioxide 24 BUN 32 H 32 H 28 H Creatinine 1.63 H 1.56 H 1.43 H Calcium 8.9 D All other labs normal. Assessment and Plan (1) Deep vein thrombosis of lower extremity: Qualifiers: Affected thrombotic vein of extremity: femoral Chronicity: acute Laterality: right Qualified Code(s): I82.411 - Acute embolism and thrombosis of right femoral vein Status: Acute Plan In short patient has right lower extremity DVT. This appears to be femoral popliteal going a little bit further into the common femoral and iliacs. He does have a PE which does not appear to be a cause of his symptoms. He is more concerned about the swelling of the right lower extremity. In short patient will require right lower extremity mechanical venous thrombectomy. Risks benefits complications of the procedure were discussed in detail with the patient patient understood and consented. We will schedule for tomorrow morning. Continue with heparin drip at the current time. Thank you for allowing us to assist in his care. If there are any questions or concerns please do not hesitate to contact us. Procedures Date of Service Date of Service: 02/21/25
--- NOTE | 2025-02-21 17:04 | P.PNIM_ITS ---
Subjective Subjective Date of Service: 02/21/25 Interval History: Mild leg pain on left related to clot burden. No shortness of breath or chest pain Review of Systems Denies chest pain Denies shortness of breath Denies nausea vomiting diarrhea Denies fever chills Physical Exam 2 Vital Signs: Vital Signs: Last Vital Signs Temp 97.8 F 02/21/25 14:24 Pulse 85 02/21/25 14:24 Resp 14 02/21/25 14:24 BP 139/80 02/21/25 14:24 Pulse Ox 97 02/21/25 14:24 O2 Del Method Room Air 02/21/25 14:24 BMI result Body Mass Index 29.8 Const: Other: Awake alert no acute distress Resp: Other: Clear to auscultation bilaterally no rales rhonchi or wheezes Cardio: Other: No S4; positive S1-S2; no S3 murmurs rubs or gallops GI: Other: Soft nontender nondistended normoactive bowel sounds Extrem: Other: Edema left lower extremity Objective Data Active Medications Acetaminophen (Acetaminophen 325 Mg Tablet) 650 mg PO Q6H PRN PRN Reason: Pain, Mild 1-3,fever,headache Last Admin: 02/20/25 22:40 Dose: 650 mg Documented By: MELANIE Calcium Carbonate (Calcium Carbonate 750 Mg Tab.Chew) 750 mg PO Q4H PRN PRN Reason: Heartburn Enoxaparin Sodium (Enoxaparin Sodium 100 Mg/Ml Syringe) 100 mg SUBCUT Q12H [facility] Sodium Chloride (Ns) 1,000 mls @ 100 mls/hr IVCONT .Q10H [facility] Magnesium Hydroxide (Milk Of Magnesia 30 Ml Oral.Susp) 30 ml PO DAILY PRN PRN Reason: Constipation Melatonin (Melatonin 3 Mg Tablet) 3 mg PO BEDTIME PRN PRN Reason: Insomnia Ondansetron HCl (Ondansetron Hcl 4 Mg/2 Ml Vial) 4 mg IVPUSH Q8H PRN PRN Reason: Nausea and Vomiting Sodium Chloride (0.9 % Sodium Chloride Flush 3 Ml Syringe) 3 ml IVFLUSH QSHIFT [facility] Last Admin: 02/21/25 16:31 Dose: Not Given Documented By: MINGO Non-Admin Reason: Previously Administered Labs 02/21/25 09:42 02/21/25 09:42 Labs: Laboratory Results - last 24 hr 02/20/25 02/20/25 02/21/25 18:11 18:12 04:00 MCV 86.5 88.9 MCH 29.9 29.2 MCHC 34.6 32.9 RDW 13.1 13.2 Plt Count 170 164 MPV 9.2 L 9.6 Immature Gran % (Auto) 0.3 Neut % (Auto) 53.9 Lymph % (Auto) 27.5 [place] % (Auto) 12.7 H Eos % (Auto) 4.6 H Baso % (Auto) 1.0 Lymph # (Auto) 2.0 [place] # (Auto) 0.9 Eos # (Auto) 0.3 Baso # (Auto) 0.1 Abs Immat Gran (auto) 0.02 Absolute Neuts (auto) 4.0 Absolute Nucleated RBC 0.000 0.000 Nucleated RBC % (auto) 0.0 0.0 PT 14.4 H INR 1.2 H Anion Gap 12 Estim Creat Clear Calc 51.4 53.7 Estimated GFR 43 45 Random Glucose 98 Calcium 8.9 D Troponin I High Sens 9.8 02/21/25 09:42 MCV 87.2 MCH 29.9 MCHC 34.3 RDW 13.2 Plt Count 161 MPV 9.4 Immature Gran % (Auto) Neut % (Auto) Lymph % (Auto) [place] % (Auto) Eos % (Auto) Baso % (Auto) Lymph # (Auto) [place] # (Auto) Eos # (Auto) Baso # (Auto) Abs Immat Gran (auto) Absolute Neuts (auto) Absolute Nucleated RBC 0.000 Nucleated RBC % (auto) 0.0 PT INR Anion Gap Estim Creat Clear Calc 58.6 Estimated GFR 49 Random Glucose Calcium Troponin I High Sens Assessment and Plan (1) Deep vein thrombosis of lower extremity: Status: Acute (2) Pulmonary emboli: Status: Acute (3) HTN (hypertension): Status: Acute Plan [id number] gentleman with no significant prior history. He presents for acute onset DVT. He reports that most recently he had a 4 hour car ride and after this car ride he developed swelling of the right lower extremity. He subsequently came to the hospital and upon workup was found to have a DVT and subsequently discovered to have a PE. 1.Saddle/submassive pulmonary emboli with extensive right lower extremity DVT -Lovenox 1 milligram/kilogram q.12 hours -appreciate vascular surgery input -check 2D echo to evaluate right heart strain -NPO after midnight for vascular intervention in a.m. 2.Possible acute kidney injury (serum creatinine 1.74->1.63; baseline unknown) -Hold lisinopril 20 mg daily -responding to volume -follow renals/divalents 3.Hypertension -acceptable control off lisinopril -add back when appropriate Full code Lovenox Requires ongoing hospitalization pending vascular intervention in a.m. Quality Stroke Does the patient have a stroke diagnosis?: No VTE Prior VTE?: No VTE Risk Level:: Medical - moderate - high VTE Device Contraindication: Procedure Contraindicated VTE Drug Contraindication: N/A - Med Ordered
[2025-02-21 18:16] VITALS: BMI 30.6
[2025-02-21 18:34] LABS: Hematocrit 36.8 % (42.0-52.0); Hemoglobin 12.7 g/dl (14.0-18.0); Mean Corpuscular HGB Conc 34.5 g/dl (31.0-36.0); Mean Corpuscular Hemoglobin 30.2 pg (27.0-33.0); Mean Corpuscular Volume 87.6 fL (80.0-98.0); NRBC Abs Auto 0.000 X10*3/uL (0.0-0.012); NRBC Pct Auto 0.0 /100WBC (0.0-0.2); Platelet Count 167 X10*3/uL (160-400); Red Blood Count 4.20 X10*6/uL (4.60-5.80); White Blood Count 6.4 X10*3/uL (4.8-10.8)
[2025-02-21 18:40] LABS: INTERNATIONAL NORM RATIO 1.2 (0.9-1.1); Prothrombin Time 14.2 SEC (11.2-13.5)
[2025-02-21 18:42] LABS: PTT Heparin Drip 33.1 SEC (53-77.9)
[2025-02-21] MEDS: Heparin Sodium,Porcine/1/2NS 25,000 UNIT/250 ML IV.SOLN 13.55 UNIT IVCONT (19:06)
--- NOTE | 2025-02-21 19:27 | PC.NURSE ---
Assumed pt care @ 1900. Pt a&ox4, no signs of distress. Pt sitting up in bed talking on his cell phone, denies pain at this time Plan of care ongoing.
[2025-02-21 20:24] VITALS: BP 139/86; PULSE 86; RESP 20; TEMP 36.6; O2SAT 97
[2025-02-21 20:46] VITALS: BP 144/81; PULSE 85; RESP 18; TEMP 37.1; O2SAT 97
[2025-02-21 23:29] VITALS: BP 159/78; PULSE 74; RESP 18; TEMP 36.7; O2SAT 95
[2025-02-22] VITALS (45 sets, daily range): BP systolic 128–177; BP diastolic 72–95; PULSE 64–84; RESP 12–24; TEMP 36.6–37.1; O2SAT 95–100
[2025-02-22 01:13] LABS: PTT Heparin Drip 73.1 SEC (53-77.9)
[2025-02-22] MEDS: 0.9 % Sodium Chloride Flush 3 ML SYRINGE IVFLUSH ×2 (01:49→19:52)
[2025-02-22 07:42] LABS: MANUAL DIFF FLAG NO
--- NOTE | 2025-02-22 07:42 | PC.NURSE ---
per Dr. Love heparin gtt to be paused at this time. Gtt paused 07 witnessed by Wanda Donahue RN. documented in MAR
[2025-02-22 07:43] LABS: Hematocrit 37.7 % (42.0-52.0); Hemoglobin 13.2 g/dl (14.0-18.0); Imm Gran Abs Auto 0.02 X10*3/uL (0.00-0.03); Imm Gran Pct Auto 0.3 % (0.0-0.4); Lymphocytes Absolute Auto 2.0 X10*3/uL (1.2-4.9); Mean Corpuscular HGB Conc 35.0 g/dl (31.0-36.0); Mean Corpuscular Hemoglobin 30.2 pg (27.0-33.0); Mean Corpuscular Volume 86.3 fL (80.0-98.0); NRBC Abs Auto 0.000 X10*3/uL (0.0-0.012); NRBC Pct Auto 0.0 /100WBC (0.0-0.2); Platelet Count 176 X10*3/uL (160-400); Red Blood Count 4.37 X10*6/uL (4.60-5.80); White Blood Count 7.6 X10*3/uL (4.8-10.8)
[2025-02-22 07:54] LABS: INTERNATIONAL NORM RATIO 1.1 (0.9-1.1); Prothrombin Time 13.6 SEC (11.2-13.5)
[2025-02-22 07:56] LABS: PTT Heparin Drip 84.8 SEC (53-77.9)
[2025-02-22 08:02] LABS: Alanine Aminotransferase 27 U/L (0-40); Albumin Level 3.9 g/dL (3.5-5.0); Alkaline Phosphatase 54 U/L (39-117); Anion Gap 11 (12-20); Aspartate Amino Transferase 24 U/L (5-37); Blood Urea Nitrogen 25 mg/dL (9-16); Calcium 8.9 mg/dL (8.4-10.2); Carbon Dioxide 23 mmol/L (22-29); Chloride 108 mmol/L (96-108); Creatinine Clr Calc Pharmacy 61.0; Estimated Glomerular Filt Rate 51; Potassium 4.1 mmol/L (3.3-5.1); Sodium 138 mmol/L (135-145); Total Protein 7.0 g/dL (6.5-8.0)
--- NOTE | 2025-02-22 08:36 | PC.NURSE ---
PT in pre-opvPTT came back at 84.8. notified PACU nurse of result, Nurse said she will follow up with Dr. Love.
[2025-02-22] MEDS: Heparin Sodium,Porcine 10,000 UNIT/10 ML VIAL 8000 UNIT IVPUSH (09:34)
--- NOTE | 2025-02-22 12:25 | PC.NURSE ---
Pt came back from PACU heparin drip resumed per Dr. Love. PTT put in based off last draw per Dr. Ramires.
[2025-02-22 13:59] LABS: PTT Heparin Drip 143.5 SEC (53-77.9)
--- NOTE | 2025-02-22 14:13 | P.PNIM_ITS ---
Subjective Subjective Date of Service: 02/22/25 Interval History: No sob s/p clot removal by vascular Physical Exam 2 Vital Signs: Vital Signs: Last Vital Signs Temp 97.8 F 02/22/25 12:31 Pulse 64 02/22/25 12:31 Resp 16 02/22/25 12:31 BP 177/86 H 02/22/25 12:31 Pulse Ox 97 02/22/25 12:31 O2 Del Method Room Air 02/22/25 12:31 O2 Flow Rate 2 02/22/25 10:48 BMI result Body Mass Index 30.6 Const: Other: General: AO X 3, no acute distress Resp: CTA bilateral CVS: S1,S2,RRR GI: +BS, NT, no distention Skin: No rash Neuro: motor grossly intact Psych: appropriate affect Objective Data Active Medications Acetaminophen (Acetaminophen 325 Mg Tablet) 650 mg PO Q6H PRN PRN Reason: Pain, Mild 1-3,fever,headache Last Admin: 02/20/25 22:40 Dose: 650 mg Documented By: MELANIE Calcium Carbonate (Calcium Carbonate 750 Mg Tab.Chew) 750 mg PO Q4H PRN PRN Reason: Heartburn Heparin Sodium (Porcine) (Heparin Sodium,Porcine 5,000 Unit/Ml Vial) 3,900 unit 40 unit/kg (3900 unit) IVPUSH PROTOCOL BOLUS PRN; Protocol PRN Reason: 40 unit/kg - Heparin Protocol Heparin Sodium (Porcine) (Heparin Sodium,Porcine 5,000 Unit/Ml Vial) 7,700 unit 80 unit/kg (7700 unit) IVPUSH PROTOCOL BOLUS PRN; Protocol PRN Reason: 80 unit/kg - Heparin Protocol Sodium Chloride (Ns) 1,000 mls @ 100 mls/hr IVCONT .Q10H [facility] Last Admin: 02/22/25 06:35 Dose: 100 mls/hr Documented By: SHAHEEN Heparin Sodium/Sodium Chloride (Heparin Sodium,Porcine/1/2ns) 25,000 unit in 250 mls @ 0 mls/hr IVCONT .Q0M [facility]; Protocol Last Titration: 02/22/25 14:00 Dose: Infused Documented By: NUVIA Co-signed By: SHANA Magnesium Hydroxide (Milk Of Magnesia 30 Ml Oral.Susp) 30 ml PO DAILY PRN PRN Reason: Constipation Melatonin (Melatonin 3 Mg Tablet) 3 mg PO BEDTIME PRN PRN Reason: Insomnia Morphine Sulfate (Morphine Sulfate 4 Mg/Ml Cartridge) 4 mg IVPUSH Q2H PRN; Protocol PRN Reason: Pain, Severe (Pain Scale 7-10) Ondansetron HCl (Ondansetron Hcl 4 Mg/2 Ml Vial) 4 mg IVPUSH Q8H PRN PRN Reason: Nausea and Vomiting Oxycodone HCl (Oxycodone Hcl Immed Release 5 Mg Tablet) 5 mg PO Q4H PRN PRN Reason: Pain, Moderate(Pain Scale 4-6) Sodium Chloride (0.9 % Sodium Chloride Flush 3 Ml Syringe) 3 ml IVFLUSH QSHIFT [facility] Last Admin: 02/22/25 07:48 Dose: Not Given Documented By: NUVIA Non-Admin Reason: IV Running Labs 02/22/25 07:36 02/22/25 07:36 Labs: Laboratory Results - last 24 hr 02/21/25 02/22/25 02/22/25 18:28 00:55 07:36 MCV 87.6 86.3 MCH 30.2 30.2 MCHC 34.5 35.0 RDW 13.1 13.0 Plt Count 167 176 MPV 9.3 L 9.3 L Immature Gran % (Auto) 0.3 Neut % (Auto) 56.9 Lymph % (Auto) 26.6 [place] % (Auto) 9.7 Eos % (Auto) 5.8 H Baso % (Auto) 0.7 Lymph # (Auto) 2.0 [place] # (Auto) 0.7 Eos # (Auto) 0.4 Baso # (Auto) 0.1 Abs Immat Gran (auto) 0.02 Absolute Neuts (auto) 4.3 Absolute Nucleated RBC 0.000 0.000 Nucleated RBC % (auto) 0.0 0.0 PT 14.2 H 13.6 H INR 1.2 H 1.1 aPTT Heparin Protocol 33.1 L 73.1 D 84.8 H Anion Gap 11 L Estim Creat Clear Calc 61.0 Estimated GFR 51 Fasting Glucose 106 H Calcium 8.9 Total Bilirubin 0.5 AST 24 ALT 27 Alkaline Phosphatase 54 Total Protein 7.0 Albumin 3.9 02/22/25 13:21 MCV MCH MCHC RDW Plt Count MPV Immature Gran % (Auto) Neut % (Auto) Lymph % (Auto) [place] % (Auto) Eos % (Auto) Baso % (Auto) Lymph # (Auto) [place] # (Auto) Eos # (Auto) Baso # (Auto) Abs Immat Gran (auto) Absolute Neuts (auto) Absolute Nucleated RBC Nucleated RBC % (auto) PT INR aPTT Heparin Protocol 143.5 H* D Anion Gap Estim Creat Clear Calc Estimated GFR Fasting Glucose Calcium Total Bilirubin AST ALT Alkaline Phosphatase Total Protein Albumin Assessment and Plan (1) Deep vein thrombosis of lower extremity: Status: Acute (2) Pulmonary emboli: Status: Acute (3) HTN (hypertension): Status: Acute Plan 64-year-old gentleman with no significant prior history. He presents for acute onset DVT. He reports that most recently he had a 4 hour car ride and after this car ride he developed swelling of the right lower extremity. He subsequently came to the hospital and upon workup was found to have a DVT and subsequently discovered to have a PE. Saddle/submassive pulmonary emboli with extensive right lower extremity DVT On heparin s/p decloting by vascular today 02/21 Nl EF, no right heart strain transition to eliquis later today Possible acute kidney injury (serum creatinine 1.74->1.63-->1.39 Hold lisinopril 20 mg daily IVF follow renals/divalents Hypertension BP ok, Full code Lovenox Requires ongoing hospitalization pending vascular intervention in a.m. Discussed with family at bedside Quality Stroke Does the patient have a stroke diagnosis?: No VTE Prior VTE?: No VTE Risk Level:: Medical - moderate - high VTE Device Contraindication: Procedure Contraindicated VTE Drug Contraindication: N/A - Med Ordered
[2025-02-22 15:28] LABS: PTT Heparin Drip 72.9 SEC (53-77.9)
[2025-02-22] MEDS: Heparin Sodium,Porcine/1/2NS 25,000 UNIT/250 ML IV.SOLN 9.68 UNIT IVCONT (15:52)
--- NOTE | 2025-02-22 16:16 | P.OP_ITS ---
Operative Note Operative Note Date of Service: 02/22/25 Narrative: Operative note by [facility] Preoperative diagnosis: Deep venous thrombosis of right lower extremity Postoperative diagnosis: Same Procedure: 1 Ultrasound-guided right popliteal vein access 2. Ultrasound-guided left popliteal vein access. 2. Inferior vena cavogram 3. Percutaneous transluminal venous mechanical thrombectomy (98609) 4. Radiologic super visual and interpretation Surgeon:Eddy Love M.D. Archives Director: None Anesthesia: Local with moderate conscious sedation. Total intra service moderate sedation time was 140 minutes. I monitored the patient's level of consciousness and physiologic status continuously throughout the procedure Specimen: None Drains: None Estimated blood loss: 50 mL Radiation: 639.3 mGy Implant: None Comorbid conditions: Hypertension, pulmonary embolism, history of COVID. Indications: The plan of care is mechanical thrombectomy of the lower extremity veins. The patient has signed the informed consent after reviewing risks, complications, benefits, and alternatives previously discussed with the patient. The patient was given the opportunity to ask any additional questions or voice any concerns. All questions were answered to the patient's satisfaction. Procedure in detail: Patient was brought to the Angiography suite prior to which a time-out was called for patient identification and site verification. The patient was placed in a prone position. Bilateral popliteal fossas were prepped out. We first access the right popliteal vein under ultrasound guidance. Multiple attempts were made to try to access this right popliteal ve in. It was a solid occlusion that appeared to be more chronic in nature. We decided to turn our attention to the left popliteal vein. We were able to easily access this. We then placed a percutaneous 5 [place] sheath. We were then able to traverse the clot with a Glidewire Advantage 035 wire. We brought in a trail Blazer catheter to confirmed true lumen. At this time 8000 units of heparin was administered. After 5 minutes of circulation time we then dilated up the tract. We then placed a 6 [place] destination sheath. We did an inferior vena cavogram. We used a flush catheter to come up and over and we were able to traverse the contralateral venous system using this advantage wire. We brought in the flushed catheter and instilled this with contrast to ensure true lumen. We then advanced a Amplatz wire down the femoral vein. We placed the clot triever sheath 16 [place] in position. We used a T-16 curve catheter to go up and over the bifurcation. We went from the left over onto the right side. We were able to traverse the occlusion down towards the popliteal vein. We then used the FT 2 coring element to macerate the clot. We then used the suction embolectomy from the flow tree verse system. Multiple locations we were able to aspirate clot removed this in its entirety. Once this was accomplished completion angiogram demonstrated resolution of external iliac femoral down to the above knee location of the popliteal. After each pass had been completed, clot was removed by aspiration through the T 16 curve sheath. After each subsequent pass the clot was removed and it was flushed clear and we then brought it in again through this area. Completion venogram demonstrated a good result. We subsequently removed catheter wire in sheath. We then placed a pursestring suture around the puncture site. Direct pressure was held for 10 minutes. Sterile dressing was applied. Patient was brought to the recovery room with stable vitals. Interpretation of films: 1. Ultrasound was used to evaluate access site. Left Popliteal vein did note to have thrombus. Right popliteal vein did demonstrate no significant disease. Ultrasound was used to visualize needle entry. Image of ultrasound was saved on PACS 2. Vena cavogram demonstrated thrombus in the distal vena cava along the end attire iliofemoral system down into the popliteal vein. 3. Left lower extremity demonstrated external iliac common femoral and femoral vein occlusion. Popliteal appear to have chronic clot. 4. Completion angiogram demonstrated successful aspiration macerated clot down to the mid SFA on that left side. Conclusion: 1. Successful mechanical clot removal. 2. Anticoagulation status: Resume heparin drip. Tomorrow may start oral anticoagulation. This note is constructed using voice recognition software. While every effort has been made to ensure accuracy, school administrator errors may have been included. Thank you for allowing me to participate in the care of your patient. Yours sincerely, Eddy Love MD, FACS, R.P.V.I.
[2025-02-22] MEDS: oxyCODONE HCl Immed Release 5 MG TABLET PO (16:20)
[2025-02-23] VITALS (7 sets, daily range): BP systolic 124–151; BP diastolic 67–84; PULSE 70–83; RESP 18–20; TEMP 36.6–36.9; O2SAT 93–96
[2025-02-23] MEDS: oxyCODONE HCl Immed Release 5 MG TABLET PO ×4 (05:56→19:14)
[2025-02-23] MEDS: Milk of Magnesia 30 ML ORAL.SUSP PO (06:02)
[2025-02-23 09:25] LABS: Hematocrit 36.6 % (42.0-52.0); Hemoglobin 12.6 g/dl (14.0-18.0); Mean Corpuscular HGB Conc 34.4 g/dl (31.0-36.0); Mean Corpuscular Hemoglobin 29.6 pg (27.0-33.0); Mean Corpuscular Volume 86.1 fL (80.0-98.0); NRBC Abs Auto 0.000 X10*3/uL (0.0-0.012); NRBC Pct Auto 0.0 /100WBC (0.0-0.2); Platelet Count 172 X10*3/uL (160-400); Red Blood Count 4.25 X10*6/uL (4.60-5.80); White Blood Count 8.2 X10*3/uL (4.8-10.8)
[2025-02-23 12:36] LABS: ACT 219 Celite s (79-173)
--- NOTE | 2025-02-23 13:04 | HO.VASCPN ---
Subjective Subjective Date of Service: 02/23/25 Patient reports: no new complaints and feels better Interval history: Patient postop day 1 status post mechanical venous thrombectomy. Reports that there is some improvement in his overall leg swelling. He does note generalized pain and discomfort that seems to have persisted. He is now for routine postprocedure follow-up. Physical Exam Vital Signs: Vital Signs: Last Vital Signs Temp 98.1 F 02/23/25 11:55 Pulse 78 02/23/25 11:55 Resp 18 02/23/25 11:55 BP 144/74 H 02/23/25 11:55 Pulse Ox 95 02/23/25 11:55 O2 Del Method Room Air 02/23/25 11:55 O2 Flow Rate 2 02/22/25 10:48 BMI result Body Mass Index 30.6 Const: General: cooperative, healthy appearing and comfortable Orientation/consciousness: oriented to person, oriented to place and oriented to time HEENT: Head: Yes normal to inspection Neck: Neck: Yes normal visual inspection Carotids: no bruits Chest: Chest palpation & inspection: normal inspection of the chest Resp: Effort & Inspection: normal respiratory effort and able to speak in complete sentences Auscultation: clear to auscultation bilaterally, no crackles, no rales, no rhonchi and no wheezes Cardio: Rate: regular rate Rhythm: regular rhythm Heart sounds: S1 normal heart sound present and S2 normal heart sound present Bruits: no carotid bruits Peripheral pulses: Peripheral pulses 2+ throughout GI: Inspection: Yes normal to inspection Skin: Wounds: no wounds Hair: normal Neuro: General: oriented to person, oriented to place and oriented to time Cranial nerves: Yes CN's II-XII intact bilaterally and Yes Normal hearing present Cognition (Neuro): normal cognition Motor exam (neuro): 5/5 motor strength present throughout Extrem: Other: venous exam: No significant superficial varicosities or spider telangiectasias, minimal edema General: No clubbing, No cyanosis and No edema Psych: Appearance: grossly normal Mental Status: mental status grossly normal Speech and movement: Normal speech and movement present Progress Note: A&P Assessment and plan (1) Deep vein thrombosis of lower extremity: Status: Acute Assessment and Plan: Doing well postprocedure. I did provide an informational pamphlet regarding his venous procedure. In addition I did provide information about compression stockings. He was encouraged to be more ambulatory and active. I do not want him bed-bound as this will be worse for clot formation. Stable from my perspective for discharge. Upon discharge can see us in a proximally 2 weeks for suture removal. Thank you for allowing us to assist in his care. If there are any questions or concerns please do not hesitate to contact us. Time Spent With Patient Time: Total time managing care of this patient today ____ minutes. Procedures Date of Service Date of Service: 02/23/25 Quality Stroke Does the patient have a stroke diagnosis?: No VTE Prior VTE?: No VTE Risk Level:: Medical - moderate - high VTE Device Contraindication: Procedure Contraindicated VTE Drug Contraindication: N/A - Med Ordered
--- NOTE | 2025-02-23 15:28 | P.CNHO_ITS ---
Subjective - Subjective Chief complaint: Right leg pain/thromboembolism Patient: new to practice Consult date: 02/23/25 Primary Care Provider: Renita Segura NP [employer] Utilized?: No - Indonesian Speaking HPI - Consult Narrative Reason for consult: Saddle pulmonary embolism, right leg DVT Narrative: Shin Prajapati is a 64 year old male who is admitted for extensive right lower extremity DVT and submassive pulmonary embolism. Patient states that he has started to develop pain in his right leg, initially a cramp like feeling that started last Friday and gradually progressed over the weekend. Pain worsened from a cramp to severe pain, on Friday he took a long hot shower to relieve the pain. Afterwards as he was traveling himself he felt dizzy and nauseous and fell injuring his left shoulder. He does not think he lost his consciousness. His girlfriend quickly came to his side and was able to call his son who brought him to [facility] by car. Patient states that he was diagnosed with COVID-19 infection in January of this year. He developed cough and congestion and since then he had a lingering cough. He did not have any pleuritic chest pain or shortness of breath at any time. On of last week he drove [address] to [place], he was therefore about 2 hours and then he drove back another 2 hours. After this his leg swelling seemed to have worsened. No prior history or family history of thromboembolism. He was never diagnosed with cancer. He goes for yearly physical with his PCP in [place]. He had a colonoscopy in 2023. He is a never smoker. His mother of colorectal cancer in her 80s. Review of Systems - Constitutional Reports as per HPI, Denies fatigue, Denies lack of energy, Denies malaise, Denies poor appetite, Denies weight loss - Cardiovascular Reports no additional cardiovascular complaints - Respiratory Reports no additional respiratory complaints - Gastrointestinal Reports no additional gastrointestinal complaints - Neurologic Reports no additional neurologic complaints, Reports hearing normal, Denies abnormal gait [facility] Medical History: Medical History (Last Updated 02/23/25 @ 15:38 by Krysta Gomez MD) HLD (hyperlipidemia) Surgical History: Surgical History (Last Updated 02/23/25 @ 15:38 by Krysta Gomez MD) History of appendectomy Social History: Social History (Last Reviewed 02/21/25 @ 22:06 by Sachi Conteh RN) Living Situation History: Household Members: Family Housing: Condominium Are you a primary health care law specialist to a significant other at home: No Do you presently have visiting nurse or other home services: No Tobacco History: Patient Tobacco Use Status: Never used Tobacco Second Hand Smoke Exposure: No Occupation Assessmet: service: No Home Medications and Allergies Current Medications: Current Medications Acetaminophen (Acetaminophen 325 Mg Tablet) 650 mg PO Q6H PRN PRN Reason: Pain, Mild 1-3,fever,headache Last Admin: 02/20/25 22:40 Dose: 650 mg Apixaban (Apixaban 5 Mg Tablet) 10 mg PO BID [facility] Last Admin: 02/23/25 07:38 Dose: 10 mg Calcium Carbonate (Calcium Carbonate 750 Mg Tab.Chew) 750 mg PO Q4H PRN PRN Reason: Heartburn Lisinopril (Lisinopril 20 Mg Tablet) 20 mg PO DAILY [facility]; Protocol Last Admin: 02/23/25 09:09 Dose: 20 mg Magnesium Hydroxide (Milk Of Magnesia 30 Ml Oral.Susp) 30 ml PO DAILY PRN PRN Reason: Constipation Last Admin: 02/23/25 06:02 Dose: 30 ml Melatonin (Melatonin 3 Mg Tablet) 3 mg PO BEDTIME PRN PRN Reason: Insomnia Morphine Sulfate (Morphine Sulfate 4 Mg/Ml Cartridge) 4 mg IVPUSH Q2H PRN; Protocol PRN Reason: Pain, Severe (Pain Scale 7-10) Last Admin: 02/22/25 17:54 Dose: 4 mg Ondansetron HCl (Ondansetron Hcl 4 Mg/2 Ml Vial) 4 mg IVPUSH Q8H PRN PRN Reason: Nausea and Vomiting Oxycodone HCl (Oxycodone Hcl Immed Release 5 Mg Tablet) 5 mg PO Q4H PRN PRN Reason: Pain, Moderate(Pain Scale 4-6) Last Admin: 02/23/25 14:46 Dose: 5 mg Polyethylene Glycol (Polyethylene Glycol 3350 17 Gm Powd.Pack) 17 gm PO DAILY PRN PRN Reason: Constipation Last Admin: 02/23/25 10:53 Dose: 17 gm Sodium Chloride (0.9 % Sodium Chloride Flush 3 Ml Syringe) [facility] Last Admin: 02/23/25 07:44 Dose: Not Given Vitamin D (Cholecalciferol (Vitamin D3) 25 Mcg Tablet) 25 mcg PO DAILY [facility] Last Admin: 02/23/25 09:09 Dose: 25 mcg Home Medications ?Medication ?Instructions ?Recorded ?Confirmed ?Type cholecalciferol (vitamin D3) 25 25 mcg PO BEDTIME 02/21/25 02/21/25 Hist ory mcg (1,000 unit) capsule (Vitamin D3) lisinopril 20 mg tablet 20 mg PO BEDTIME 02/21/25 02/21/25 Histo ry Allergies Allergy/AdvReac Type Severity Reaction Status Date / Time No Known Allergies Allergy Verified 02/20/25 13:46 Physical Exam Vital signs: Vital Signs Temp 98.1 F 02/23/25 11:55 Pulse 78 02/23/25 11:55 Resp 18 02/23/25 11:55 BP 144/74 H 02/23/25 11:55 Pulse Ox 95 02/23/25 11:55 O2 Del Method Room Air 02/23/25 11:55 O2 Flow Rate 2 02/22/25 10:48 Intake & Output 02/22/25 02/23/25 02/23/25 18:59 06:59 18:59 Intake Total 2021.925 / 2060.806 38.881 / 2060.806 480 / 480 Output Total 400 / 1200 800 / 1200 Balance 1621.925 / 860.806 -761.119 / 860.806 480 / 480 Urine Output (Average ml/kg/hr) 0.34 0.69 0.69 Intake: Intake, Oral Amount 360 / 360 480 / 480 IV Intake, Intraoperative 500 / 500 Amount Intake, IV Amount 1161.925 / 1200.806 38.881 / 1200.806 0.9 % Sodium Chloride 1,000 ml 1000 / 1000 @ 100 mls/hr IVCONT .Q10H [facility] Rx#:[id number] Heparin Sodium,Porcine/1/2NS 25 161.925 / 200.806 38.881 / 200.806 ,000 unit In 250 ml @ Per Protocol IVCONT .Q0M [facility] Rx#: [id number] Output: Output, Urine Amount 400 / 1200 800 / 1200 Other: Meal Refused No NPO Yes Breakfast % Eaten NPO Lunch % Eaten 100% Eating (Feeding) Ability Set Up only Number of Unmeasured Voids 2 Urine Urinal Urinal Bathroom Urine Color Yellow Tea Yellow Last Bowel Movement 02/20/25 Weight 96.8 kg - Constitutional Present: no acute distress - Routine HEENT Exam Head: Present: normal inspection Eye: Present: EOMI, PERRL - Routine Neck Exam Present: supple. Absent: lymphadenopathy - Routine Respiratory Exam Present: CTAB - Routine Cardiovascular Exam Cardiovascular: Present: RRR, S1, S2 - Routine Abdominal Exam Present: soft - Routine Extremities Exam Present: pulses intact. Absent: pedal edema - Routine Skin Exam Present: intact Hem/Onc Consult Result - Labs CBC & Chem 7: 02/23/25 09:19 02/22/25 07:36 Labs: Short CBC 02/23/25 Range/Units 09:19 WBC 8.2 (4.8-10.8) X10*3/uL Hgb 12.6 L (14.0-18.0) g/dl Hct 36.6 L (42.0-52.0) % Plt Count 172 (160-400) X10*3/uL Assessment and Plan Patient Active problem list reviewed?: Yes (1) Pulmonary emboli Status: Acute Assessment and plan: 1. This is a 64-year-old male with no significant past medical history who has been diagnosed with extensive right lower extremity DVT and submassive pulmonary embolism involving predominantly left pulmonary artery. He presented with pain and swelling of the right leg and a chronic cough but no acute respiratory symptoms. He was diagnosed with COVID-19 infection in January 2025. Right lower extremity Doppler performed 02/20/2025 showed extensive DVT involving right common femoral to popliteal level. CT angiogram performed revealed saddle embolism involving the left main pulmonary artery, left upper and lower lobe lobar pulmonary emboli as well as segmental pulmonary emboli. Subsegmental pulmonary emboli within right lower lobe. No CT evidence of right ventricular strain. Echocardiogram showed normal EF 55-60%. Normal right ventricular cavity size and systolic function. Patient underwent mechanical venous thrombectomy on 02/21/2025. Clot in the right popliteal vein appeared chronic. He was on IV heparin, now transitioned to Eliquis 10 mg b.i.d.. for a week followed by 5 mg b.i.d.. He could have developed thromboembolism in January after COVID-19 infection. He did have a persistent cough since then. His leg pain and swelling worsened after his recent trip to [place] and back. At this time I have recommended at least 6 months of anticoagulation. We also discussed role of thrombophilia testing. This can be performed in a few months, not in the setting of acute clot and recent heparin use. There is no family history of thromboembolism and patient is up-to-date with screening colonoscopy and PSA screening as per his report. He was advised to monitor himself for any signs of bleeding. He was advised to establish with a tax collection coordinator in [place]. Thank you for the consultation. - Time Spent With Patient Time Spent with Patient (in minutes): 30 Additional Coding: - Additional E/M codes Complex E/M visit Add On: CPT G2211
--- NOTE | 2025-02-23 15:50 | MHC.CM.PN ---
Pt. not medically cleared yet, DCP will be home, no services, CM to follow for DC needs.
--- NOTE | 2025-02-23 17:31 | P.PNIM_ITS ---
Subjective Subjective Date of Service: 02/23/25 Interval History: Pain when walking Physical Exam 2 Vital Signs: Vital Signs: Last Vital Signs Temp 98.5 F 02/23/25 15:36 Pulse 83 02/23/25 15:36 Resp 18 02/23/25 15:36 BP 127/70 02/23/25 15:36 Pulse Ox 96 02/23/25 15:36 O2 Del Method Room Air 02/23/25 15:36 O2 Flow Rate 2 02/22/25 10:48 BMI result Body Mass Index 30.6 Const: Other: General: AO X 3, no acute distress Resp: CTA bilateral CVS: S1,S2,RRR, more swelling in the right leg GI: +BS, NT, no distention Skin: No rash Neuro: motor grossly intact Psych: appropriate affect Objective Data Active Medications Acetaminophen (Acetaminophen 325 Mg Tablet) 650 mg PO Q6H PRN PRN Reason: Pain, Mild 1-3,fever,headache Last Admin: 02/20/25 22:40 Dose: 650 mg Documented By: MELANIE Apixaban (Apixaban 5 Mg Tablet) 10 mg PO BID [facility] Last Admin: 02/23/25 07:38 Dose: 10 mg Documented By: NUVIA Calcium Carbonate (Calcium Carbonate 750 Mg Tab.Chew) 750 mg PO Q4H PRN PRN Reason: Heartburn Lisinopril (Lisinopril 20 Mg Tablet) 20 mg PO DAILY [facility]; Protocol Last Admin: 02/23/25 09:09 Dose: 20 mg Documented By: NUIVA Magnesium Hydroxide (Milk Of Magnesia 30 Ml Oral.Susp) 30 ml PO DAILY PRN PRN Reason: Constipation Last Admin: 02/23/25 06:02 Dose: 30 ml Documented By: CHYNA Melatonin (Melatonin 3 Mg Tablet) 3 mg PO BEDTIME PRN PRN Reason: Insomnia Morphine Sulfate (Morphine Sulfate 4 Mg/Ml Cartridge) 4 mg IVPUSH Q2H PRN; Protocol PRN Reason: Pain, Severe (Pain Scale 7-10) Last Admin: 02/22/25 17:54 Dose: 4 mg Documented By: NUVIA Ondansetron HCl (Ondansetron Hcl 4 Mg/2 Ml Vial) 4 mg IVPUSH Q8H PRN PRN Reason: Nausea and Vomiting Oxycodone HCl (Oxycodone Hcl Immed Release 5 Mg Tablet) 5 mg PO Q4H PRN PRN Reason: Pain, Moderate(Pain Scale 4-6) Last Admin: 02/23/25 14:46 Dose: 5 mg Documented By: NUVIA Polyethylene Glycol (Polyethylene Glycol 3350 17 Gm Powd.Pack) 17 gm PO DAILY PRN PRN Reason: Constipation Last Admin: 02/23/25 10:53 Dose: 17 gm Documented By: NUVIA Sodium Chloride (0.9 % Sodium Chloride Flush 3 Ml Syringe) 3 ml IVFLUSH QSHIFT [facility] Last Admin: 02/23/25 16:30 Dose: Not Given Documented By: NUVIA Non-Admin Reason: See Note Vitamin D (Cholecalciferol (Vitamin D3) 25 Mcg Tablet) 25 mcg PO DAILY [facility] Last Admin: 02/23/25 09:09 Dose: 25 mcg Documented By: NUVIA Labs 02/23/25 09:19 02/22/25 07:36 Labs: Laboratory Results - last 24 hr 02/22/25 02/23/25 09:47 09:19 MCV 86.1 MCH 29.6 MCHC 34.4 RDW 13.0 Plt Count 172 MPV 9.3 L Absolute Nucleated RBC 0.000 Nucleated RBC % (auto) 0.0 Activated Clotting Time 219 H Assessment and Plan (1) Deep vein thrombosis of lower extremity: Status: Acute (2) Pulmonary emboli: Status: Acute (3) HTN (hypertension): Status: Acute Plan 64-year-old gentleman with no significant prior history. He presents for acute onset DVT. He reports that most recently he had a 4 hour car ride and after this car ride he developed swelling of the right lower extremity. He subsequently came to the hospital and upon workup was found to have a DVT and subsequently discovered to have a PE. Saddle/submassive pulmonary emboli with extensive right lower extremity DVT s/p decloting by vascular today 02/21 Nl EF, no right heart strain transition to eliquis 10 bid since yester Heme/onc consult, will need outpatient work up Possible acute kidney injury (serum creatinine 1.74->1.63-->1.39 Hold lisinopril 20 mg daily IVF follow renals/divalents Hypertension BP ok, Full code Lovenox Requires ongoing hospitalization pending vascular intervention in a.m. Discussed with family at bedside Quality Stroke Does the patient have a stroke diagnosis?: No VTE Prior VTE?: No VTE Risk Level:: Medical - moderate - high VTE Device Contraindication: Procedure Contraindicated VTE Drug Contraindication: N/A - Med Ordered
[2025-02-23] MEDS: 0.9 % Sodium Chloride Flush 3 ML SYRINGE IVFLUSH (19:32)
[2025-02-24 03:10] VITALS: BP 117/65; PULSE 77; RESP 18; TEMP 36.8; O2SAT 94
[2025-02-24] MEDS: oxyCODONE HCl Immed Release 5 MG TABLET PO ×2 (06:09→09:51)
[2025-02-24 07:07] VITALS: BP 122/69; PULSE 67; RESP 18; TEMP 36.9; O2SAT 94
[2025-02-24 07:22] LABS: Hematocrit 35.5 % (42.0-52.0); Hemoglobin 12.2 g/dl (14.0-18.0); Mean Corpuscular HGB Conc 34.4 g/dl (31.0-36.0); Mean Corpuscular Hemoglobin 30.0 pg (27.0-33.0); Mean Corpuscular Volume 87.2 fL (80.0-98.0); NRBC Abs Auto 0.000 X10*3/uL (0.0-0.012); NRBC Pct Auto 0.0 /100WBC (0.0-0.2); Platelet Count 190 X10*3/uL (160-400); Red Blood Count 4.07 X10*6/uL (4.60-5.80); White Blood Count 7.8 X10*3/uL (4.8-10.8)
--- NOTE | 2025-02-24 07:23 | PM.DS ---
DS: Providers Provider Date of admission: 02/20/25 20:50 Date of discharge: 02/24/25 Primary care physician: Renita Segura NP Consults: 02/20/25 22:59 Consult to Vascular Surgery Routine Consulting Provider: [facility] Vascular Services Reason for consultation: extensive RLE DVT DS: Diagnosis Discharge Diagnosis (1) Deep vein thrombosis of lower extremity: Status: Acute (2) Pulmonary emboli: Status: Acute (3) HTN (hypertension): Status: Acute DS: Summary Hospital Course Hospital Course: admission HPI Chief Complaint: Saddle PE and RLE DVT A 64-year-old male a comorbid conditions significant for hypertension and hyperlipidemia. He presents to the emergency department for evaluation for right lower extremity swelling associated with pain and an unwitnessed fall. Right lower extremity swelling and pain: 2 days history of right unilateral LE swelling, erythema and pain. Onset of symptoms occurred after a car for 4 hours ([address]) on February. Denied personal history of DVT/PE; denied SOB/dyspnea, pleuritic chest pain, hemoptysis, lightheadedness, syncope, and palpitations. Unwitnessed fall: Lost of balance whilst bending forward to dry off his extremities when he got out of the shower. Denies prodromal symptoms, head trauma and loss of consciousness. Vital signs in the ED: BP (initial) 171/714, (current) 146/84, HR (initial) 93 (current) 85, RR: (initial) 18 (current) 18, U7wssqi (initial) 98% (RA) (current) 98% (RA), Temp (initial) 98.1 (current) 98.4 Diagnostic studies Labs: hstrop: 8->9; CMP within normal limits except for: BUN: 34->32, cr 1.74->1.63; PT 14.4, INR: 1.2; CBC wnl except for Hgb 13.1 ECG: NSR @ 75 bpm, QTc: 397 ms, and no ischemic changes. Imaging: - RLE venous duplex ultrasound: Right lower extremity deep venous thrombosis extending from the common femoral to the popliteal level, compatible with fairly extensive deep venous thrombosis. There may be some involvement of the greater saphenous vein origin as well. - CTA chest PE protocol: Left worse than right pulmonary emboli. The RV/LV ratio appears greater than 1 (measured on 6; 266), without definitive CT evidence of right ventricular strain. No aortic dissection. - CT head and cervical spine w/o contrast: my interpretation no acute intracranial pathology Brief ED course Tx: Lovenox 100 mg SQ x 1 dose. ED attending discussed the case with vascular surgery. Hospital course: The patient presented with right leg swelling, dizziness, and a fall, and was found to have a right lower extremity DVT and a saddle pulmonary embolism. He remained hemodynamically stable throughout his admission. Initial management included therapeutic enoxaparin (Lovenox), which was later transitioned to IV heparin. Vascular surgery was consulted, and on 02/22, he underwent a right leg thrombectomy. Echocardiogram revealed no evidence of right heart strain. He has now been transitioned to apixaban (Eliquis) at 10 mg twice daily for 7 days, to be followed by 5 mg twice daily indefinitely. Hematology follow-up is planned for further evaluation of possible underlying causes, as it remains unclear whether the VTE was provoked. Time Attestation Discharge Coordination Time (in mins): 45 Quality: Safe Use of Opioids Does Pt have an Active Cancer Diagnosis on the Problem List?: No Quality: Stroke Does the patient have a stroke diagnosis?: No Physical Exam Vital Signs: Vital Signs: Selected Entries 02/24/25 07:07 Temperature 98.4 F Pulse Rate 67 Respiratory Rate 18 Blood Pressure 122/69 Pulse Oximetry 94 Oxygen Delivery Me thod Room Air Const: Other: General: AO X 3, no acute distress Resp: CTA bilateral CVS: S1,S2,RRR, more swelling in the right leg GI: +BS, NT, no distention Skin: No rash Neuro: motor grossly intact Psych: appropriate affect DS: Data Data Completed and Pending Labs on day of discharge: Laboratory Results - last 24 hr 02/22/25 02/22/25 02/23/25 13:21 14:52 09:19 WBC 8.2 RBC 4.25 L Hgb 12.6 L Hct 36.6 L MCV 86.1 MCH 29.6 MCHC 34.4 RDW 13.0 Plt Count 172 MPV 9.3 L Absolute Nucleated RBC 0.000 Nucleated RBC % (auto) 0.0 aPTT Heparin Protocol 143.5 H* D 72.9 D Discharge Plan Discharge Anticipated Discharge Date/Time: 02/24/25 07:24 Patient Disposition: Home, Self-Care Discharge Diagnosis: pulmonary embolism and Saddle PE Referrals: Krysta Gomez MD [Physician, Hematology & Oncology] - 2 Weeks Eddy Loev MD [Physician, Vascular Surgery] - 2 Weeks Renita Segura NP [Primary Care Provider, [facility]] - 1 Week Discharge Medications: New Eliquis 5 mg Tablet See Rx Instructions .ROUTE .COMPLEX Qty: 102 0RF Rx Instructions: take 2 tabs twice daily for 5 more days (10 doses) and after that 1 tab twice daily thereafter oxycodone 5 mg Tablet 5 mg PO Q4H PRN (Reason: Pain, Moderate(Pain Scale 4-6)) Qty: 16 0RF Rx Instructions: Partial Fill upon patient request. Continued lisinopril 20 mg tablet 20 mg PO BEDTIME cholecalciferol (vitamin D3) [Vitamin D3] 25 mcg (1,000 unit) capsule 25 mcg PO BEDTIME Discharge Orders: Discharge Order (Routine); Ordered 02/24/25 Ordered By: Jim Ramires Diet: Advance to usual diet Activity on Discharge: As tolerated Stand Alone Forms: Patient Portal Discharge page Print Language: Georgian Care Plan Goals: Recovery from DVTs (blood clots in leg) and PE (blood clot in the lung Health Concerns: DVT or right leg, Saddle pulmonary emboli Plan of Treatment: Take eliquis as directed 2tabs twice daily for 5 more days (10 doses), after that take 1 tab twice daily follow up with your PCP in a week Follow up with Dr. Love Follow up with Hematology and Oncology Clinic Call 911 if you experince chest pain, sob or dizziness or other unsual symptoms use compression stocking to right leg as directed Assessment: see aove Discharge Date/Time: 02/24/25 11:23
[2025-02-24 07:42] LABS: Anion Gap 12 (12-20); Blood Urea Nitrogen 24 mg/dL (9-16); Calcium 8.7 mg/dL (8.4-10.2); Carbon Dioxide 27 mmol/L (22-29); Chloride 102 mmol/L (96-108); Creatinine Clr Calc Pharmacy 54.7; Estimated Glomerular Filt Rate 45; Potassium 4.7 mmol/L (3.3-5.1); Sodium 136 mmol/L (135-145)
== END 2025-02-24 11:23 | disposition home or self-care (01) | DRG 463 ==
LOC: HO.ED 19:16 → HO.EDOVER 21:01 → HO.IMC 02-21 17:08 → HO.EDOVER 02-21 17:47 → HO.IMC 02-21 20:01
PROVIDERS: Hospitalist; Physician Assistant Medical; Surgery Vascular Surgery; Admitting Provider Family Medicine; Emergency Provider Emergency Medicine Emergency Medical Services; PCP Family Medicine; Visit Provider Internal Medicine
PROC: 06CM3ZZ Extirpation of Matter from Right Femoral Vein, Percutaneous Approach (ICD-10-PCS; principal; 2025-02-22 08:00)
DX: T87.89 Other complications of amputation stump (principal); I26.92 Saddle embolus of pulmonary artery without acute cor pulmonale; I82.411 Acute embolism and thrombosis of right femoral vein; I82.431 Acute embolism and thrombosis of right popliteal vein; N17.9 Acute kidney failure, unspecified; L97.819 Non-pressure chronic ulcer of other part of right lower leg with unspecified severity; E11.622 Type 2 diabetes mellitus with other skin ulcer; Y83.5 Amputation of limb(s) as the cause of abnormal reaction of the patient, or of later complication, without mention of misadventure at the time of the procedure; I10 Essential (primary) hypertension; Z79.899 Other long term (current) drug therapy
CPT/HCPCS: 36415; 37187; 70450; 71275; 72125; 76937; 80048; 80053; 82565; 83735; 84484; 84520; 85025; 85027; 85347; 85610; 85730; 93005; 93306; 93971; 97161; 99152; 99153; 99285; C1757; C1769; C1887; C1894; J1644; J1650; J2250; J2270; J3010; J7120; Q9957; Q9967

== ENCOUNTER → 2025-02-20 13:46 | Outpatient (BNV) | payer BC, MEDICARE, SELFPAY | PROVIDERS: Visit Provider Radiology Diagnostic Radiology | DX: I26.99 Other pulmonary embolism without acute cor pulmonale (principal); I82.401 Acute embolism and thrombosis of unspecified deep veins of right lower extremity | CPT/HCPCS: 71275; 93971 ==

== ENCOUNTER → 2025-02-20 13:47 | Outpatient (BNV) | payer MEDICARE, BC, SELFPAY | PROVIDERS: Admitting Provider Family Medicine; Emergency Provider Emergency Medicine Emergency Medical Services; Visit Provider Internal Medicine Cardiovascular Disease | DX: R42 Dizziness and giddiness (principal) | CPT/HCPCS: 93010 ==

== ENCOUNTER 2025-02-20 20:50 | Outpatient (BNV) | payer MEDICARE, BC, SELFPAY | END 2025-02-21 07:00 | PROVIDERS: Admitting Provider Family Medicine; Emergency Provider Emergency Medicine Emergency Medical Services; Visit Provider Internal Medicine Cardiovascular Disease | DX: I26.99 Other pulmonary embolism without acute cor pulmonale (principal) | CPT/HCPCS: 93306 ==

== ENCOUNTER → 2025-02-20 20:50 | Outpatient (BNV) | payer MEDICARE, BC, SELFPAY | PROVIDERS: Admitting Provider Family Medicine; Emergency Provider Emergency Medicine Emergency Medical Services; Visit Provider Family Medicine | DX: I82.411 Acute embolism and thrombosis of right femoral vein (principal); I26.99 Other pulmonary embolism without acute cor pulmonale; I10 Essential (primary) hypertension | CPT/HCPCS: 99222; 99232; 99239 ==

== ENCOUNTER → 2025-02-20 20:50 | Outpatient (BNV) | payer MEDICARE, BC, SELFPAY | PROVIDERS: Admitting Provider Family Medicine; Emergency Provider Emergency Medicine Emergency Medical Services; PCP Family Medicine; Visit Provider Internal Medicine | DX: I26.92 Saddle embolus of pulmonary artery without acute cor pulmonale (principal); I82.411 Acute embolism and thrombosis of right femoral vein; I82.431 Acute embolism and thrombosis of right popliteal vein | CPT/HCPCS: 99222 ==

== ENCOUNTER → 2025-02-20 20:50 | Outpatient (BNV) | payer MEDICARE, BC, SELFPAY | PROVIDERS: Admitting Provider Family Medicine; Emergency Provider Emergency Medicine Emergency Medical Services; Visit Provider Surgery Vascular Surgery | DX: I82.411 Acute embolism and thrombosis of right femoral vein (principal) | CPT/HCPCS: 99232 ==

== ENCOUNTER 2025-03-08 08:32 | Outpatient (REF) | payer MEDICARE, BC, SELFPAY ==
[2025-03-08 09:05] LABS: Hematocrit 38.3 % (42.0-52.0); Hemoglobin 13.0 g/dl (14.0-18.0); Mean Corpuscular HGB Conc 33.9 g/dl (31.0-36.0); Mean Corpuscular Hemoglobin 30.1 pg (27.0-33.0); Mean Corpuscular Volume 88.7 fL (80.0-98.0); NRBC Abs Auto 0.000 X10*3/uL (0.0-0.012); NRBC Pct Auto 0.0 /100WBC (0.0-0.2); Platelet Count 258 X10*3/uL (160-400); Red Blood Count 4.32 X10*6/uL (4.60-5.80); White Blood Count 6.9 X10*3/uL (4.8-10.8)
[2025-03-08 09:36] LABS: Hemoglobin A1C 148.3434 umol/L
[2025-03-08 09:53] LABS: Alanine Aminotransferase 23 U/L (0-40); Albumin Level 4.5 g/dL (3.5-5.0); Alkaline Phosphatase 53 U/L (39-117); Anion Gap 14 (12-20); Aspartate Amino Transferase 25 U/L (5-37); Blood Urea Nitrogen 28 mg/dL (9-16); Calcium 9.6 mg/dL (8.4-10.2); Carbon Dioxide 25 mmol/L (22-29); Chloride 105 mmol/L (96-108); Cholesterol 232 mg/dL (<200); Estimated Glomerular Filt Rate 39; HDL Cholesterol 37 mg/dL (>40); Iron 90 mcg/dL (45-160); Percent Iron Saturation 37 % (15-50); Potassium 4.6 mmol/L (3.3-5.1); Sodium 139 mmol/L (135-145); Total Iron Binding Capacity 241 mcg/dL (228-428); Total Protein 7.9 g/dL (6.5-8.0); Triglycerides 238 mg/dL (<150); Unsaturated Iron Binding 151 ug/dL
--- OUTSIDE RECORDS SUMMARY | 2025-03-08 10:13 | XMS_ITS | Encounter Summary ---
Author Organization [facility] [place] [address] Care Team Providers Care Nurses' Association Executive Director Name Role Phone joeivelisseRenita Helena ALVAREZ Primary Care Provider [phone] Reason for Visit * Reason Comments Medication Refill Encounter Details Date Type Department Care Team (Late st Contact Info) Description 03/04/2025 Refill Neph[place] [address] Chrystal Cordero CUPOLA [employer]ER [facility] [place] [place] [address] Stage 3b chronic kidney disease; Vitamin D deficiency Social History Tobacco Use Types Packs/Day Years Used Date Smoking Tobacco: Never Smokeless Tobacco: Never Alcohol Use Standard Drinks/Week Comments Not Currently 0 (1 standard drink = 0.6 oz pur e alcohol) [facility] Inpatient Questions Answer Date Recorded Does Anyone [...] on file Sexual Orientation Not on file documented as of this encounter Miscellaneous Notes * Telephone Encounter - Henny Vasquez RMA - 03/04/2025 11:45 AM EST Prescription Renewal Request Name: Shin Prajapati : 1960 Prescription(s) Requested: Requested Prescriptions Pending Prescriptions Disp Refills Vitamin D 25 mcg (1,000 unit) Capsule [Pharmacy Med Name: VITAMIN D3 1,000 UNIT SOFTGEL] 90 capsule3 Sig: TAKE 1 CAPSULE BY MOUTH EVERY DAY Date of Encounter last in This Dept (If need an appointment send to secretaries to schedule): 06/24/2023 with Chrystal Cordero Next Encounter in This Dept: Visit date not found Date of Last Refill (for each medication): Vitamin D 25 mcg (1,000 unit) Capsule TAKE 1 CAPSULE BY MOUTH EVERY DAY Dispense: 90 capsule, Refills: 3 ordered 02/20/2024 -- -- [facility] Chrystal Cordero APRN [facility]/pharmacy #[id number] - [place], [place] - 04/15/2023 note: Vitamin D deficiency E55.9 Status of request: Pended Allergies[1] GABBI KEENAN 03/04/25 11:45 AM [1] No Known Allergies documented in this encounter Plan of Treatment Not on file documented as of this encounter Visit Diagnoses Diagnosis Stage 3b chronic kidney disease Vitamin D deficiency Unspecified vitamin D deficiency documented in this encounter Care Teams Nurses' Association Executive Director Relationship Specialty Start Date End Date Renita Segura APRN [address] [place] [id number] PCP - General 04/20/13 documented as of this encounter
--- OUTSIDE RECORDS SUMMARY | 2025-03-08 10:13 | XMS_ITS | Clinical Summary ---
Author Organization [facility] Address [facility] [place] [address] Care Team Providers Care Marketing Developer Name Role Phone Renita Segura APRN Primary Care Provider [phone]- [phone] Allergies No known active allergies Medications triamcinolone (Kenalog) 0.1 % Ointment Apply topically to the affected area twice daily for 21 days. Take 1 week off, repeat as needed, 80 g 3 11/29/19 21 Active lisinopriL (Zestril) 20 mg tabletIndications: Stage 3b chronic kidney disease TAKE 1 TABLET BY MOUTH EVERY DAY 90 tablet 3 05/20/19 25 Active rosuvastatin (Crestor) 20 mg tabletIndications: Hyperlipidemia, unspecified hyperlipidemia type TAKE 1 TABLET BY MOUTH EVERY DAY 90 tablet 3 08/24/19 25 Active apixaban (Eliquis) 5 mg tabletIndications: deep venous thrombosis Take 5 mg by mouth 2 times daily. Take 2 tabs twice daily x 5 more days ( 10 doses ) and after that 1 tab twice daily thereafter Indications: blood clot in a deep vein of the extremities Active oxyCODONE (Oxaydo) 5 mg tablet (ORAL ONLY) Take 5 mg by mouth every 4 hours as needed (moderate pain). Active cholecalciferol, Vitamin D3, (Vitamin D) 25 mcg (1,000 unit) CapsuleIndications :Stage 3b chronic kidney disease,Vitamin D deficiency Take 1 capsule by mouth daily. 90 capsule 3 03/07/20 25 Active Active Problems Problem Noted Date Diagnosed [...] Encounters Date Type Department Care Team Description 03/04/2025 Refill Neph[place] [address] Chrystal Cordero APRN Stage 3b chronic kidney disease; Vitamin D deficiency 02/28/2025 Patient Outreach Primary Care at [address] [address] Elma Hinojosa, RN Post Hospital Discharge (Discharged [facility] 02/24/25 ) 02/24/2025 Telephone Primary Care at [address] [address] Caitlyn Bob RN 12/07/2024 4:20 PM EDT TH Visit (TeleHealth) Primary Care at [address] [address] Renita Segura APRN Prediabetes; Vitamin D deficiency; Hyperlipidemia, unspecified hyperlipidemia type; Stage 3a chronic kidney disease from Last 3 Months Immunizations Immunization Administration Dates Next Due Covid-19 (Moderna Spikevax) 12yrs+ (1193-6893) 01/20/2023 Covid-19 Bivalent (Pfizer Co mirnaty) 12yrs+ (7360-9389) 01/12/2022 Covid-19 Monovalent (Pfizer Comirnaty purple cap) 12yrs+ (1681-9765) 02/17/2021,06/21/2020,05/31/2020 DT Pediatric 04/14/2003,03/10/1990 Influenza (Fluzone HD) [...] Zoster vaccine (2 of 2) 04/09/2024 02/13/2024 Influenza (Flu) vaccine (1 of 1 - Influenza standard series) 11/08/2024 11/26/2023, 01/20/2023, 01/12/2022, Additional history exists Pneumoccocal Vaccine: 50+ (1 of 1 - PCV) 04/20/2025 Postponed from 2008 (Patient Declined) Covid-19 Vaccine ( season) 2025 02/10/2025, 11/26/2023, 01/20/2023, Additional history exists Pre-DM monitoring (HgbA1C or FBG) 11/27/2025 11/27/2024, [...] Procedure Name Priority Date/Time Associated Diagnosis Comments CT SCAN (SCAN) 02/20/2025 12:00 AM EST HEMOGLOBIN A1C Routine 11/27/2024 8:29 AM EDT Elevated fasting blood sugar Prediabetes COLONOSCOPY Routine 06/26/2022 8:50 AM EDT HC HEPATITIS C ANTIBODY Routine 03/07/2021 7:41 AM EST Healthcare maintenance from Last 3 Months or Most Recently Relevant to Health Maintenance Results * Scan Doc: CT Scan (02/20/2025 12:00 AM EST) Anatomical Region Laterality Modality Other Narrative 02/20/2025 12:00 AM EST Ordered by an unspecified provider. us Scanning Provider MEDIA MGR SCAN EXT ORDR/RSLT F inal Result * (ABNORMAL) Hemoglobin A1c (11/27/2024 8:29 AM EDT) Hemoglobin A1c 6.2(H) 4.3 - 5.6 % 11/27/2024 8:52 AM EDT [facility] Comment: Per ADA guidelines, without clear [...] red blood cell turnover may not be national sales representative of glycemic control. Reference Interval: 4.3 - 5.6% 5.7 - 6.4%: Consistent with prediabetes >=6.5%: Consistent with diagnosis of diabetes mellitus Estimated Average Glucose 131 mg/dL 11/27/2024 8:52 AM EDT [facility] Blood VENOUS BLOOD SPECIMEN / Unknown Venipuncture / Unknown 11/27/2024 8:29 AM EDT 11/27/2024 8:29 AM EDT Narrative [facility] - 11/27/2024 8:52 AM EDT Estimated average glucose (eAG) is calculated from the equation described in: Henrik FIELDS, Ezra J, Gloria R, et al. Translating the A1C assay into estimated average glucose values. Diabetes Care 2008:31(8):2664-6899. Additional resources are available on the ADA website (diabetes.org). us Renita Segura COMSEC MANAGER CHEMISTRY ORDERABLES Final Result [facility] [address] [place] [address] * COLONOSCOPY (06/26/2022 8:50 AM EDT) COLONOSCOPY Patient Name: Shin Prajapati Procedure Date: 06/26/2022 8:50 AM Attending MD: Sumit Gomes MD Date of : 1960 Order #: [id number] Age: 62 Instrument Name: [id number] Procedure: Colonoscopy Indications: High risk colon cancer [...] K64.0, First degree hemorrhoids CPT copyright 2020 [employer]. All rights reserved. The codes documented in this report are preliminary and upon termite renewal inspector review may be revised to meet current compliance requirements. Sumit Gomes MD __ Sumit Gomes MD 06/26/2022 8:52:44 AM This report has been signed electronically. Number of Addenda: 0 PROVATION 06/26/2022 8:50 AM EDT us Sumit Gomes MD GENERAL SURGICAL ORDERABLES E dited Result - Final PROVATION * Hepatitis C Antibody (03/07/2021 7:41 AM EST) Hepatitis C Antibody Negative Negative [facility] Blood 03/07/2021 7:41 AM EST 03/07/2021 7:42 AM EST Narrative Resulting Agency Comment Spec In Lab us Renita Segura COMSEC MANAGER CHEMISTRY ORDERABLES Final Result [facility] [address] [place] [address] from Last 3 Months or Most Recently Relevant to Health Maintenance Insurance [facility] O MEDICARE Advance Directives Documents on File Type Date Recorded Patient Vehicle Fuel Systems Converter Expl anation Advance Directives and Livin g Will 05/31/2016 7:51 AM Care Teams Marketing Developer Relationship Specialty Start Date End Date Renita Segura APRN [address] [facility] [place] [address] PCP - General 04/20/13
--- OUTSIDE RECORDS SUMMARY | 2025-03-08 10:13 | XMS_ITS | Encounter Summary ---
Author Organization [facility] [place] [address] Care Team Providers Care Nc Manager Name Role Phone ColtonRenita Helena ALVAREZ Primary Care Provider [phone]- [phone] Reason for Visit * Reason Onset Date Comments Post Hospital Discharge 02/28/2025 Discharg ed [facility] 02/24/25 Encounter Details Date Type Department Care Team (Late st Contact Info) Description 02/28/2025 Patient Outreach Primary Care at [address] [address] Elma Hinojosa, RN Post Hospital Discharge (Discharged [facility] 02/24/25 ) Social History Tobacco Use Types Packs/Day Years Used Date Smoking Tobacco: Never Smokeless Tobacco: Never Alcohol Use Standard Drinks/Week Comments Not Currently 0 (1 standard drink = 0.6 oz pur e alcohol) [facility] Inpatient Questions Answer Date Recorded Does [...] encounter Miscellaneous Notes * Telephone Encounter - Elma Hinojosa, RN - 02/28/2025 1:59 PM EST Post Hospital/Halfway Discharge Call 02/28/2025 1:55 PM Transitional Care Date of Most Recent Admission 02/20/2025 PCP Division [facility] Discharge Facilities Other Other Facility [facility] Date of most recent discharge to home 02/24/2025 Date of TCM phone call #1 02/28/2025 Readmission within 30 days? No Discharge Diagnosis: Saddle PE with DVT DVT RLE HTN Operations/Procedures: Yes, 02/22/25 Right leg thrombectomy. Incidental Findings Noted on Discharge Summary: No Person providing information: Shin Prajaptai Medication Reconciliation: New Medication started: Yes Apixaban, Oxycodone Med Dose Changes: No Discontinued Medication: No Med Discrepancies: No Difficulty obtaining medications:No Is Shin on warfarin (Coumadin): No CHF Diagnosis related to hospital stay? No Was patient referred for services (home care/DME/meals on wheels)? No Advance directive on file?: Yes Summary/Plan: I called patient. He said he was in [place]. He said he is transferring his care to [facility] and will have a new PCP down there. His first appt is 03/07/25. He said he has hematology and vascular surgery follow up schedule there and will just stay in [facility] for awhile. I transferred him to medical records so he can get his records sent before the PCP visit. Education: Discharge instructions reviewed. Patient/caregiver(s) understands discharge instructions: Yes Patient/caregiver(s) understands medication instructions: Yes Smoking History: Never smoker General Risk Score: 1 Values used to calculate this score: Points Metrics 1 Age: 64 0 Hospital Admissions: 0 0 ED Visits: 0 0 Has Chronic Obstructive Pulmonary Disease: No 0 Has Diabetes Excluding Gestational Diabetes: No 0 Has Congestive Heart Failure: No 0 Has Liver Disease: No 0 Has Depression: No 0 Current PCP: Renita Segura APRN 0 Has Medicaid: No Does Shin qualify for 8-day post hospital follow-up call? No Follow-up: Primary Care: Yes, establishing with new PCP in [facility] Specialist: Yes, Hematology/Oncology and Vascular Surgeon in [facility] Diagnostic (lab/radiology): No Patient/Caregiver is aware and verbalizes understanding of all follow-up appointments, labs, tests,etc: Yes No future appointments. MyDH: Patient has myDH and is actively using. Elma Hinojosa, RN, 02/28/2025, 1:59 PM Overhead Crane Technician Management documented in this encounter Plan of Treatment Not on file documented as of this encounter Visit Diagnoses Not on filedocumented in this encounter Care Teams Nc Manager Relationship Specialty Start Date End Date Renita Segura APRN [address] [place] [id number] PCP - General 04/20/13 documented as of this encounter
[2025-03-08 10:14] LABS: Ferritin 846 ng/mL (20-250)
[2025-03-08 10:50] LABS: Appearance Urine Clear; Glucose Urine UA Negative (Negative); PH 5.5 (5.0-9.0); Specific Gravity - Urine 1.015 (1.005-1.025); UMIC TRIGGER UACC YES
== END 2025-03-08 08:33 | disposition home or self-care (01) ==
LOC: HO.LAB 08:32
PROVIDERS: PCP Physician Assistant Medical; Visit Provider Physician Assistant Medical
DX: Z13.1 Encounter for screening for diabetes mellitus (principal); R79.89 Other specified abnormal findings of blood chemistry; R31.29 Other microscopic hematuria; D64.9 Anemia, unspecified; I10 Essential (primary) hypertension; E78.5 Hyperlipidemia, unspecified; Z13.21 Encounter for screening for nutritional disorder
CPT/HCPCS: 36415; 80053; 80061; 81001; 82306; 82728; 83036; 83540; 85027

== ENCOUNTER 2025-03-09 09:04 | Outpatient (AMB) | payer MEDICARE, BC, SELFPAY ==
[2025-03-09 09:12] VITALS: BMI 29.7
--- NOTE | 2025-03-09 09:12 | A.OFFVIS_ITS ---
Vital Signs 03/09/25 09:12 Height 5 ft 10.5 in Weight 210 lb BMI 29.7 Intake Visit Reasons: Follow up Thrombectomy 02/22/25 Intake Note: follow up thrombectomy 02/22/25. Has suture that needs to be removed Supervisor Correspondence Section Required: No Accompanied by: Spouse Allergies No Known Allergies Allergy (Verified 03/09/25 09:14) HPI HPI Follow up Thrombectomy 02/22/25: Details: The patient is a 64 year old male presenting for a follow-up visit after a mechanical venous thrombectomy of his right lower extremity. He is currently taking Eliquis for anticoagulation. The procedure revealed that the clot consisted of both older and newer components, suggesting a chronic process. The patient reports his leg feels much better and significantly less swollen since the procedure, stating it previously felt like it was going to pop. He notes some soreness behind his knee and a poking sensation attributed to the suture, which was removed during the visit. He now presents for postprocedure follow-up [facility] Medical History Pre-diabetes History of pulmonary embolism History of DVT (deep vein thrombosis) Low vitamin D level Microscopic hematuria Anemia HLD (hyperlipidemia) HTN (hypertension) Surgical History History of appendectomy Family History (Updated 03/09/25 @ 11:48 by Melissa Chacon) Mother Colon cancer Father No problems noted. Brother Cancer Social History (Updated 03/09/25 @ 11:46 by Melissa Chacon) Household Members: Family and None Housing: Condominium Are you a primary primary health care nurse to a significant other at home: No Do you presently have visiting nurse or other home services: No Patient Tobacco Use Status: Never used Tobacco e-Cigarette/Vaping Use: Never Used Second Hand Smoke Exposure: No Use of substances other than those prescribed or required for medical reasons: No Have you been hit, kicked, punched, or otherwise hurt by someone within the past year? If so, by whom?: No Do you feel safe in your current relationship?: Yes Do you have thoughts of harming others: None Do you have a plan to hurt others: No Plan Current occupational status: retired Cognitive needs: No Hearing needs: No Vision needs: Yes (Reading glasses) Review of Systems Const All systems reviewed & are unremarkable except as noted in HPI and below Reports no additional complaints ENT Reports Normal hearing present Card Denies chest pain, Denies chest pain at rest, Denies chest pain with activity and Denies pedal edema Resp Denies cough GI Denies abdominal pain Musc Denies abnormal gait, Denies muscle cramps and Denies radiating pain into limb Skin/Breast Denies skin ulcer and Denies wounds Neuro Reports Normal hearing present and Denies abnormal gait Psych Reports no additional complaints Physical Exam Vital Signs: BMI result Body Mass Index 29.7 Const General: cooperative, healthy appearing and comfortable Orientation/consciousness: oriented to person, oriented to place and oriented to time HEENT Head: Yes normal to inspection Neck Neck: Yes normal visual inspection Carotids: no bruits Chest Chest palpation & inspection: normal inspection of the chest Resp Effort & Inspection: normal respiratory effort and able to speak in complete sentences Auscultation: clear to auscultation bilaterally, no crackles, no rales, no rhonchi and no wheezes Cardio Rate: regular rate Rhythm: regular rhythm Heart sounds: S1 normal heart sound present and S2 normal heart sound present Bruits: no carotid bruits Peripheral pulses: Peripheral pulses 2+ throughout GI Inspection: Yes normal to inspection Skin Wounds: no wounds Hair: normal Neuro General: oriented to person, oriented to place and oriented to time Cranial nerves: Yes CN's II-XII intact bilaterally and Yes Normal hearing prese nt Cognition (Neuro): normal cognition Motor exam (neuro): 5/5 motor strength present throughout Extrem Other: venous exam: +1 edema General: No clubbing, No cyanosis and No edema Psych Appearance: grossly normal Mental Status: mental status grossly normal Speech and movement: Normal speech and movement present Assessment & Plan Assessment & Plan (1) Deep vein thrombosis of lower extremity: Comment: 02/22/2025 - left lower extremity mechanical venous thrombectomy Code(s): I82.409 - Acute embolism and thrombosis of unspecified deep veins of unspecified lower extremity Category: Medical Qualifiers: Affected thrombotic vein of extremity: femoral Chronicity: acute Laterality: right Qualified Code(s): I82.411 - Acute embolism and thrombosis of right femoral vein Plan: I saw the patient for a post-operative follow-up after a mechanical thrombectomy of his right lower extremity. I explained that the thrombus was a mix of acute and chronic clot, which made the procedure more challenging. I informed him that anticoagulation with Eliquis will promote further recanalization and dissolution of any residual clot. During the visit, I removed his suture from the popliteal fossa. We discussed the importance of lifelong compression therapy to manage swelling, and I recommended knee-high stockings with 20-30 mmHg of pressure, providing a handout with purchasing information. I advised him that long-term management of his anticoagulation will be handled by his PCP and process design engineer, and that no further scans are needed from my perspective. Finally, we reviewed his report of increased hematuria since starting blood thinners, and I strongly advised him to inform his primary care doctor for further management, which may include a urology consultation. I confirmed he has no activity restrictions but should remain cautious about potential bruising. Thank you for allowing us to assist in his care. If there are any questions or concerns please do not hesitate to contact us Coding Level of Care Code Est Pt Level 3 (26681) Diagnoses Acute deep vein thrombosis (DVT) of femoral vein of right lower extremity I82.411 Affected thrombotic vein of extremity: femoral Chronicity: acute Laterality: right
--- OUTSIDE RECORDS SUMMARY | 2025-03-09 09:16 | XMS_ITS | Clinical Summary ---
Author Organization [facility] Address [facility] [place]aceli [place]án[place] [address] Care Team Providers Care Artificial Flowers Dyer Name Role Phone Renita Segura APRN Primary Care Provider +1- [phone] Allergies No known active allergies Medications triamcinolone [...] Team Description 03/04/2025 Refill Neph[place] [address] Chrystal Cordero APRN Stage 3b chronic kidney disease; Vitamin D deficiency 02/28/2025 Patient Outreach Primary Care at [address] [address] Elma Hinojosa, RN Post Hospital Discharge (Discharged [facility] 02/24/25 ) 02/24/2025 Telephone Primary Care at [address] [address] Caitlyn oBb RN 12/07/2024 4:20 PM EDT TH Visit (TeleHealth) Primary Care at [address] [address] Renita Segura APRN Prediabetes; Vitamin D deficiency; Hyperlipidemia, unspecified hyperlipidemia type; Stage 3a chronic kidney disease from Last 3 Months Immunizations Immunization Administration Dates Next Due Covid-19 (Moderna Spikevax) 12yrs+ (9827-8609) 01/20/2023 Covid-19 Bivalent (Pfizer Co mirnaty) 12yrs+ (2445-9802) 01/12/2022 Covid-19 Monovalent (Pfizer Comirnaty purple cap) 12yrs+ (7885-0954) 02/17/2021,06/21/2020,05/31/2020 DT Pediatric 04/14/2003,03/10/1990 Influenza (Fluzone HD) [...] - 5.6 % 11/27/2024 8:52 AM EDT [facility] Comment: Per ADA guidelines, without [...] red blood cell turnover may not be client services representative of glycemic control. Reference Interval: 4.3 - 5.6% 5.7 - 6.4%: Consistent with prediabetes >=6.5%: Consistent with diagnosis of diabetes mellitus Estimated Average Glucose 131 mg/dL 11/27/2024 8:52 AM EDT [facility] Blood VENOUS BLOOD SPECIMEN / Unknown Venipuncture / Unknown 11/27/2024 8:29 AM EDT 11/27/2024 8:29 AM EDT Narrative [facility] - 11/27/2024 8:52 AM EDT Estimated average glucose (eAG) is calculated from the equation described in: Henrik FIELDS, Ezra J, Gloria R, et al. Translating the A1C assay into estimated average glucose values. Diabetes Care 2008:31(8):1724-3943. Additional resources are available on the ADA website (diabetes.org). us Renita Segura CROP QUANTITATIVE GENETICIST CHEMISTRY ORDERABLES Final Result [facility] [address] [place] [address] * COLONOSCOPY (06/26/2022 8:50 AM EDT) COLONOSCOPY Patient Name: Shin Prajapati Procedure Date: 06/26/2022 8:50 AM Attending MD: Sumit Gomes MD Date of : 1960 Order #: [id number] Age: 62 Instrument Name: [id number] Procedure: Colonoscopy Indications: High risk colon cancer [...] K64.0, First degree hemorrhoids CPT copyright 2020 [employer]. All rights reserved. The codes documented in this report are preliminary and upon machine finisher review may be revised to meet current compliance requirements. Sumit Gomes MD __ Sumit Gomes MD 06/26/2022 8:52:44 AM This report has been signed electronically. Number of Addenda: 0 PROVATION 06/26/2022 8:50 AM EDT us Sumit Gomes MD GENERAL SURGICAL ORDERABLES E dited Result - Final PROVATION * Hepatitis C Antibody (03/07/2021 7:41 AM EST) Hepatitis C Antibody Negative Negative [facility] Blood 03/07/2021 7:41 AM EST 03/07/2021 7:42 AM EST Narrative Resulting Agency Comment Spec In Lab us Renita Segura CROP QUANTITATIVE GENETICIST CHEMISTRY ORDERABLES Final Result [facility] [address] [facility] [place] [address] from Last 3 Months or Most Recently Relevant to Health Maintenance Insurance [facility] O MEDICARE Advance Directives Documents on File Type Date Recorded Patient Tape Duplicator Expl anation Advance Directives and Livin g Will 05/31/2016 7:51 AM Care Teams Artificial Flowers Dyer Relationship Specialty Start Date End Date Renita Segura APRN [address] [facility] [place] [address] PCP - General 04/20/13
--- OUTSIDE RECORDS SUMMARY | 2025-03-09 09:16 | XMS_ITS | Encounter Summary ---
Author Organization [facility] araceli Hen[place]án[place] [address] Care Team Providers Care Rolling Attendant Name Role Phone ColtonRenita Helena ALVAREZ Primary Care Provider [phone] Reason for Visit * Reason Onset Date Comments Post Hospital Discharge 02/28/2025 Discharg ed [facility] 02/24/25 Encounter Details Date Type Department Care Team (Late st Contact Info) Description 02/28/2025 Patient Outreach Primary Care at [address] [address] Elma Hinojosa, RN Post Hospital Discharge (Discharged [facility] 02/24/25 ) Social History Tobacco Use Types [...] RN - 02/28/2025 1:59 PM EST Post Hospital/Half-Way Discharge Call 02/28/2025 1:55 PM Transitional Care Date of Most Recent Admission 02/20/2025 PCP Division [facility] Discharge Facilities Other Other Facility [facility] Date of most recent discharge to home 02/24/2025 Date of TCM phone call #1 02/28/2025 Readmission within 30 days? No Discharge Diagnosis: Saddle PE with DVT DVT RLE HTN Operations/Procedures: Yes, 02/22/25 Right leg thrombectomy. Incidental Findings Noted on Discharge Summary: No Person providing information: Shin rPajapati Medication Reconciliation: New Medication started: Yes Apixaban, Oxycodone Med Dose Changes: No Discontinued Medication: No Med Discrepancies: No Difficulty obtaining medications:No Is Shin on warfarin (Coumadin): No CHF Diagnosis related to hospital stay? No Was patient referred for services (home care/DME/meals on wheels)? No Advance directive on file?: Yes Summary/Plan: I called patient. He said he was in [place]. He said he is transferring his care to [facility] and will have a new PCP down there. His first appt is 03/07/25. He said he has hematology and vascular surgery follow up schedule there and will just stay in [facility] for [facility]. I transferred him to medical [...] Care: Yes, establishing with new PCP in [facility] Specialist: Yes, Hematology/Oncology and Vascular Surgeon in [facility] Diagnostic (lab/radiology): No Patient/Caregiver is aware and verbalizes understanding of all follow-up appointments, labs, tests,etc: Yes No future appointments. MyDH: Patient has myDH and is actively using. Elma Hinojosa, RN, 02/28/2025, 1:59 PM Ventilating Engineer Management documented in this encounter Plan of Treatment Not on file documented as of this encounter Visit Diagnoses Not on filedocumented in this encounter Care Teams Rolling Attendant Relationship Specialty Start Date End Date Renita Segura APRN [address] [place] [id number] PCP - General 04/20/13 documented as of this encounter
--- OUTSIDE RECORDS SUMMARY | 2025-03-09 09:16 | XMS_ITS | Encounter Summary ---
Author Organization [facility] [place] [address] Care Team Providers Care Technology Administrator Name Role Phone joeivelisseRenita Helena ALVAREZ Primary Care Provider [phone] Reason for Visit * Reason Comments Medication Refill Encounter Details Date Type Department Care Team (Late st Contact Info) Description 03/04/2025 Refill Nephrology [place] [address] Chrystal Cordero [employer]OVE [employer]OM WORKER [facility] [address] Stage 3b chronic kidney disease; Vitamin D deficiency Social History Tobacco Use Types Packs/Day Years Used Date Smoking Tobacco: Never Smokeless Tobacco: Never Alcohol Use Standard Drinks/Week Comments Not Currently 0 (1 standard drink = 0.6 oz pur e alcohol) [facility] Inpatient Questions Answer Date Recorded Does Anyone [...] capsule, Refills: 3 ordered 02/20/2024 -- -- [facility] Chrystal Cordero APRN [facility]/pharmacy #[id number] - [place], [place] - 04/15/2023 note: Vitamin D deficiency E55.9 Status of request: Pended Allergies[1] GABBI KEENAN 03/04/25 11:45 AM [1] No Known Allergies documented in this encounter Plan of Treatment Not on file documented as of this encounter Visit Diagnoses Diagnosis Stage 3b chronic kidney disease Vitamin D deficiency Unspecified vitamin D deficiency documented in this encounter Care Teams Technology Administrator Relationship Specialty Start Date End Date Renita Segura APRN [address] [place] [id number] PCP - General 04/20/13 documented as of this encounter
== END 2025-03-09 09:31 | disposition home or self-care (01) ==
LOC: HO.HVS 09:04
PROVIDERS: PCP Family Medicine; Visit Provider Surgery Vascular Surgery
DX: I82.411 Acute embolism and thrombosis of right femoral vein (principal)
CPT/HCPCS: 99213

== ENCOUNTER → 2025-03-09 09:04 | Outpatient (BNVA) | payer MEDICARE, BC, SELFPAY | PROVIDERS: PCP Family Medicine; Visit Provider Surgery Vascular Surgery | DX: I82.411 Acute embolism and thrombosis of right femoral vein (principal); Z98.890 Other specified postprocedural states; Z48.02 Encounter for removal of sutures; Z79.01 Long term (current) use of anticoagulants | CPT/HCPCS: 99212 ==

== ENCOUNTER → 2025-03-09 11:34 | Outpatient (BNV) | payer MEDICARE, BC, SELFPAY | PROVIDERS: PCP Physician Assistant Medical; Visit Provider Internal Medicine | DX: I26.92 Saddle embolus of pulmonary artery without acute cor pulmonale (principal); I82.411 Acute embolism and thrombosis of right femoral vein; I82.431 Acute embolism and thrombosis of right popliteal vein; R79.89 Other specified abnormal findings of blood chemistry; R31.29 Other microscopic hematuria; Z79.01 Long term (current) use of anticoagulants | CPT/HCPCS: 99214; G2211 ==